=== PATIENT | male | born 1975 | race Caucasian/White ===

== ENCOUNTER 2016-07-09 16:25 | Emergency (ER) | payer MEDICARE, MEDICAID ==
--- NOTE | 2016-07-09 16:49 | Emergency Department Record ---
History of Present Illness - General Chief complaint: Nausea, Vomiting, Diarrhea Stated complaint: NAUSEA AND BACK PAIN Time Seen by Provider: 07/09/16 16:46 Source: Patient Mode of Arrival: Ambulatory Limitations: No limitations - History of Present Illness Initial comments: 41 yo female presents to ED with a CC of congestion, fever, non-productive cough , and sore throat symptoms. Patient reports taking Motrin for his bodyaches and fever symptoms. Patient denies health problems other than "pain all the time". MD complaint: Other (congestion, fever) Onset/Timin -: Week(s) Associated Abdominal Pain: No Radiation: None Quality: Aching Improves with: None Worsens with: None Associated Symptoms: Denies other symptoms - Related Data Home Medications Medication Instructions Recorded Confirmed Last Taken Thyroid,Pork [[place] Thyroid] 15 mg PO QHS 08/09/14 07/09/16 07/09/16 Pantoprazole Sodium [Protonix] 40 mg PO QHS 09/12/14 07/09/16 07/09/16 Meloxicam [Mobic] 15 mg PO QHS 10/02/15 07/09/16 07/08/16 Cyclobenzaprine HCl [Flexeril] 10 mg PO QHS 07/09/16 07/09/16 07/08/16 Ibuprofen [Motrin 600Mg] 600 mg PO Q6H 07/09/16 07/09/16 07/09/16 Linaclotide [Linzess] 145 mcg PO DAILY 07/09/16 07/09/16 07/09/16 Oxymorphone HCl [Oxymorphone HCl 1 tab PO BID 07/09/16 07/09/16 07/08/16 ER] Previous Rx's Medication Instructions Recorded Doxycycline Hyclate [Doxycycline] 100 mg PO BID #20 cap 07/09/16 Allergies Allergy/AdvReac Type Severity Reaction Status Date / Time cefaclor [From Ceclor] Allergy HYPERSENSIT Verified 07/09/16 16:33 [facility] Travel Screening - Travel/Exposure Within Last 30 Days Have you traveled within the last 30 days?: No - Travel/Exposure Within Last Year Have you traveled outside the [place] in the last year?: No - Additonal Travel Details Have you been exposed to anyone with a communicable illness?: No - Travel Symptoms Symptom Screening: None Review of Systems Constitutional: Reports: Chills, Fever, Malaise. Denies: Night sweats Eyes: Denies: Eye discharge, Eye pain ENT: Reports: Congestion. Denies: Ear pain, Epistaxis, Throat pain Respiratory: Reports: Cough. Denies: Dyspnea, Hemoptysis Cardiovascular: Denies: Chest pain, Dyspnea on exertion Endocrine: Denies: Fatigue, Heat or cold intolerance Gastrointestinal: Denies: Abdominal pain, Nausea, Vomiting Musculoskeletal: Denies: Arthralgia, Back pain, Gout, Joint swelling Skin: Denies: Bruising, Change in color Neurological: Denies: Abnormal gait, Confusion, Seizure Psychiatric: Denies: Anxiety Hematological/Lymphatic: Denies: Anemia, Blood Clots Past Medical History - SOCIAL HISTORY Smoking Status: Former smoker Alcohol Use: Occassional Drug Use Detail:: Marijuana - RESPIRATORY Hx Respiratory Disorders: No - CARDIOVASCULAR Hx Cardio Disorders: No - NEURO Hx Neuro Disorders: Yes Hx Headaches: Yes - GI Hx GI Disorders: Yes Hx Reflux: Yes - Hx Genitourinary Disorders: No - ENDOCRINE Hx Endocrine Disorders: Yes Hx Thyroid Disease: Yes (hyper) - MUSCULOSKELETAL Hx Musculoskeletal Disorders: Yes Hx Arthritis: Yes Hx Back Injury: Yes - PSYCH Hx Psych Problems: No - HEMATOLOGY/ONCOLOGY Hx Hematology/Oncology Disorders: No Family Medical History Any Significant Family History?: Yes Family Hx Comment (NOT TO BE USED IN PLACE OF ITEMS BELOW): Denies Hx Dementia: Grandparents Hx Depression: Children Hx Diabetes: Mother, Grandparents Physical Exam - General General Appearance: Alert, Oriented x3, Cooperative, No acute distress Limitations: No limitations - Head Head exam: Atraumatic, Normocephalic, Normal inspection Head exam detail: negative: Abrasion, Contusion, Sanders's sign, General tenderness, Hematoma, Laceration - Eye Eye exam: Normal appearance. negative: Conjunctival injection, Periorbital swelling, Periorbital tenderness, Scleral icterus - ENT Ear exam: negative: Auricular hematoma, Auricular trauma Nasal Exam: negative: Active bleeding, Discharge, Dried blood, Foreign body Mouth exam: negative: Drooling, Laceration, Muffled voice, Tongue elevation Throat exam: negative: Tonsillar erythema, Tonsillomegaly, R peritonsillar mass , L peritonsillar mass - Neck Neck exam: Normal inspection. negative: Meningismus, Tenderness - Respiratory Respiratory exam: Normal lung sounds bilaterally. negative: Rales, Respiratory distress, Rhonchi, Stridor - Cardiovascular Cardiovascular Exam: Regular rate, Normal rhythm, Normal heart sounds - GI/Abdominal GI/Abdominal exam: Soft. negative: Rebound, Rigid, Tenderness - Rectal Rectal exam: Deferred - exam: Deferred - Extremities Extremities exam: Normal inspection. negative: Calf tenderness, Pedal edema, Tenderness - Back Back exam: Denies: CVA tenderness (R), CVA tenderness (L) - Neurological Neurological exam: Alert, Normal gait, Oriented X3 - Psychiatric Psychiatric exam: Normal affect, Normal mood - Skin Skin exam: Normal color. negative: Abrasion Type of lesion: negative: abrasion Course Vital Signs 07/09/16 16:39 Temperature 98.7 F Pulse Rate 92 H Respiratory 20 Rate Blood Pressure 152/97 Pulse Ox 96 - Reevaluation(s) Reevaluation #1: 07/09/16 17:07 Influenza negative. Will prescribe Doxycycline for a 10-day course of antibiotics. Patient appears stable for discharge at this time. Disposition Disposition: Discharge Clinical Impression: Upper respiratory tract infection Qualifiers: URI type: unspecified URI Qualified Code(s): J06.9 - Acute upper respiratory infection, unspecified Disposition: Home, Self-Care Condition: (2) Stable Instructions: Upper Respiratory Infection (ED) Additional Instructions: Return to ED if your symptoms worsen or if you have any concerns. Follow-up with your family doctor in 3-5 days as directed. Doxycycline as directed. Prescriptions: Doxycycline Hyclate [Doxycycline] 100 mg PO BID #20 cap Forms: Patient Portal Access Time of Disposition: 17:10
[2016-07-09 17:05] LABS: INFLUENZA A NEGATIVE (NEGATIVE); INFLUENZA B NEGATIVE (NEGATIVE)
== END 2016-07-09 17:18 | disposition home or self-care (01) ==
LOC: ER 16:25
DX: J06.9 Acute upper respiratory infection, unspecified (principal); R11.2 Nausea with vomiting, unspecified; R19.7 Diarrhea, unspecified; R05 Cough; J02.9 Acute pharyngitis, unspecified
CPT/HCPCS: 87400; 99282

== ENCOUNTER 2016-07-11 12:04 | Emergency (ER) | payer MEDICARE, MEDICAID ==
[2016-07-11] MEDS: ONDANSETRON 4 MG ODT TABLET SL ONE (12:33)
--- NOTE | 2016-07-11 12:34 | Emergency Department Record ---
History of Present Illness - General Chief Complaint: Difficulty Breathing Stated Complaint: URI Time Seen by Provider: 07/11/16 12:28 Source: Patient Mode of Arrival: Ambulatory Limitations: No limitations - History of Present Illness Initial Comments: 41 yo returns to ED for evaluation of continued fevers, chills, nausea, and vomiting symptoms. Patient was seen 2 days ago, influenza was negative at that time, and the patient was started on Doxycycline for his symptoms. Patient reports that his symptoms have not improved, however he was unable to fill his prescription for nausea and vomiting, and has not been able to keep his ibuprofen down to help his symptoms. Onset/Timin -: Days(s) Severity: Moderate Severity scale (1-10): 6 Quality: Aching Consistency: Constant Improves With: Nothing Worsens With: Nothing Context: Recent URI Associated Symptoms: Fever Treatments Prior to Arrival: Other (antibiotics) - Related Data Home Oxygen Therapy: No Home Medications Medication Instructions Recorded Confirmed Last Taken Thyroid,Pork [[place] Thyroid] 15 mg PO QHS 08/09/14 07/11/16 1 Day Ago Pantoprazole Sodium [Protonix] 40 mg PO QHS 09/12/14 07/11/16 1 Day Ago Cyclobenzaprine HCl [Flexeril] 10 mg PO QHS 07/09/16 07/11/16 1 Day Ago Ibuprofen [Motrin 600Mg] 600 mg PO Q6H 07/09/16 07/11/16 1 Day Ago Linaclotide [Linzess] 145 mcg PO DAILY 07/09/16 07/11/16 1 Day Ago Oxymorphone HCl [Oxymorphone HCl 1 tab PO BID 07/09/16 07/11/16 1 Day Ago ER] Previous Rx's Medication Instructions Recorded Doxycycline Hyclate [Doxycycline] 100 mg PO BID #20 cap 07/09/16 Ondansetron [Zofran Odt] 4 mg PO Q6H PRN #20 tab.rapdis 07/11/16 Allergies Allergy/AdvReac Type Severity Reaction Status Date / Time cefaclor [From Ceclor] Allergy HYPERSENSIT Verified 07/11/16 12:14 [facility] Travel Screening - Travel/Exposure Within Last 30 Days Have you traveled within the last 30 days?: No - Travel/Exposure Within Last Year Have you traveled outside the [place] in the last year?: No - Additonal Travel Details Have you been exposed to anyone with a communicable illness?: No - Travel Symptoms Symptom Screening: None Review of Systems Constitutional: Reports: Chills, Fever, Malaise. Denies: Night sweats Eyes: Denies: Eye discharge, Eye pain ENT: Denies: Congestion, Ear pain, Epistaxis Respiratory: Reports: Cough. Denies: Dyspnea Cardiovascular: Denies: Chest pain, Dyspnea on exertion, Palpitations Endocrine: Reports: Fatigue. Denies: Heat or cold intolerance Gastrointestinal: Reports: Nausea, Vomiting. Denies: Abdominal pain Genitourinary: Denies: Hematuria, Incontinence, Retention Musculoskeletal: Reports: Myalgia. Denies: Arthralgia, Back pain, Gout, Joint swelling Skin: Denies: Bruising, Change in color, Change in hair/nails Neurological: Denies: Abnormal gait, Confusion, Headache, Seizure Psychiatric: Denies: Anxiety Hematological/Lymphatic: Denies: Anemia, Blood Clots Past Medical History - SOCIAL HISTORY Smoking Status: Former smoker Alcohol Use: Occassional Drug Use: None - RESPIRATORY Hx Respiratory Disorders: No - CARDIOVASCULAR Hx Cardio Disorders: No - NEURO Hx Neuro Disorders: Yes Hx Headaches: Yes - GI Hx GI Disorders: Yes Hx Reflux: Yes - Hx Genitourinary Disorders: No - ENDOCRINE Hx Endocrine Disorders: Yes Hx Thyroid Disease: Yes (hyper) - MUSCULOSKELETAL Hx Musculoskeletal Disorders: Yes Hx Arthritis: Yes Hx Back Injury: Yes - PSYCH Hx Psych Problems: No - HEMATOLOGY/ONCOLOGY Hx Hematology/Oncology Disorders: No Family Medical History Any Significant Family History?: Yes Family Hx Comment (NOT TO BE USED IN PLACE OF ITEMS BELOW): Denies Hx Dementia: Grandparents Hx Depression: Children Hx Diabetes: Mother, Grandparents Physical Exam - General General Appearance: Alert, Oriented x3, Cooperative, Mild distress Limitations: No limitations - Head Head exam: Atraumatic, Normocephalic, Normal inspection Head exam detail: negative: Abrasion, Contusion, Sanders's sign, General tenderness, Hematoma, Laceration - Eye Eye exam: Normal appearance. negative: Conjunctival injection, Periorbital swelling, Periorbital tenderness, Scleral icterus - ENT Ear exam: negative: Auricular hematoma, Auricular trauma Nasal Exam: negative: Active bleeding, Discharge, Dried blood, Foreign body Mouth exam: negative: Drooling, Laceration, Muffled voice, Tongue elevation - Neck Neck exam: Normal inspection. negative: Meningismus, Tenderness - Respiratory Respiratory exam: Normal lung sounds bilaterally. negative: Rales, Respiratory distress, Rhonchi, Stridor - Cardiovascular Cardiovascular Exam: Normal rhythm, Normal heart sounds, Tachycardia - GI/Abdominal GI/Abdominal exam: Soft. negative: Rebound, Rigid, Tenderness - Rectal Rectal exam: Deferred - exam: Deferred - Extremities Extremities exam: Normal inspection. negative: Calf tenderness, Pedal edema, Tenderness - Back Back exam: Denies: CVA tenderness (R), CVA tenderness (L) - Neurological Neurological exam: Alert, Normal gait, Oriented X3 - Psychiatric Psychiatric exam: Normal affect, Normal mood - Skin Skin exam: Normal color. negative: Abrasion Type of lesion: negative: abrasion Course Vital Signs 07/11/16 12:06 Temperature 98.5 F Pulse Rate 112 H Respiratory 18 Rate Blood Pressure 140/103 Pulse Ox 95 - Reevaluation(s) Reevaluation #1: 07/11/16 12:32 I counseled the patient regarding his negative influenza and that his symptoms are likely viral in nature (doxycyline may not help with these symptoms). Patient was instructed to fill his prescription for Zofran so that he will be able to tolerate Motrin and Tylenol for his fevers and body aches. Patient verbalizes understanding, and appears stable for discharge at this time. Disposition Disposition: Discharge Clinical Impression: URI (upper respiratory infection) Qualifiers: URI type: unspecified URI Qualified Code(s): J06.9 - Acute upper respiratory infection, unspecified Disposition: Home, Self-Care Condition: (2) Stable Instructions: Viral Syndrome, [employer] (GEN) Additional Instructions: Return to ED if your symptoms worsen or if you have any concerns. Follow-up with your family doctor in 1-3 days without fail. Zofran as directed. Prescriptions: Ondansetron [Zofran Odt] 4 mg PO Q6H PRN #20 tab.rapdis PRN Reason: Nausea/Vomiting Forms: Patient Portal Access Time of Disposition: 12:36
[2016-07-11] MEDS: ACETAMINOPHEN 500 MG TABLET PO ONE (12:37)
== END 2016-07-11 12:42 | disposition home or self-care (01) ==
LOC: ER 12:04
DX: J06.9 Acute upper respiratory infection, unspecified (principal); R06.00 Dyspnea, unspecified; R11.2 Nausea with vomiting, unspecified
CPT/HCPCS: 99282

== ENCOUNTER 2017-05-21 04:52 | Emergency (ER) | payer MEDICARE, MEDICAID ==
[2017-05-21] MEDS ORDERED: ACETAMINOPHEN 500 MG TABLET PO ONE (05:10)
[2017-05-21] MEDS ORDERED: KETOROLAC 60 MG/2 ML VIAL IM STA (05:10)
--- NOTE | 2017-05-21 05:16 | Emergency Department Record ---
History of Present Illness - General Chief Complaint: Back Pain/Injury Stated Complaint: EXTREME BACK, RIGHT LEG PAIN,NAUSEATED Time Seen by Provider: 05/21/17 05:06 Source: Patient Mode of Arrival: Ambulatory Limitations: No limitations - History of Present Illness Initial Comments: 42 yo male presents to ED for evaluation of fever, body aches, and no- productive cough symptoms that began this morning. Patient reports taking ibuprofen prior to arrival as well as "oxycontin" which did not help his pain symptoms. Patient denies ill contacts, and denies health problems other than back surgeries in the past. MD Complaint: Back pain Onset/Timin -: Days(s) Place: Home Severity scale (1-10): 8 Quality: Aching, Stabbing Consistency: Constant Associated Symptoms: Cough, Nausea/vomiting Treatments Prior to Arrival: NSAIDS - Related Data Home Medications Medication Instructions Recorded Confirmed Last Taken Oxycodone HCl [Oxycontin] 20 mg PO BID 05/21/17 05/21/17 05/21/17 Allergies Allergy/AdvReac Type Severity Reaction Status Date / Time cefaclor [From Ceclor] Allergy HYPERSENSIT Verified 07/11/16 12:14 [facility] Travel Screening - Travel/Exposure Within Last 30 Days Have you traveled within the last 30 days?: No - Travel Symptoms Symptom Screening: None Review of Systems Constitutional: Reports: Chills, Fever, Malaise. Denies: Night sweats Eyes: Denies: Eye discharge, Eye pain ENT: Denies: Congestion, Ear pain, Epistaxis Respiratory: Reports: Cough. Denies: Dyspnea Cardiovascular: Denies: Chest pain, Dyspnea on exertion Endocrine: Denies: Fatigue, Heat or cold intolerance Gastrointestinal: Reports: Nausea. Denies: Abdominal pain, Vomiting Genitourinary: Denies: Incontinence, Retention, Testicular pain Musculoskeletal: Reports: Back pain, Myalgia. Denies: Joint swelling Skin: Denies: Bruising, Change in color Neurological: Denies: Abnormal gait, Confusion, Headache, Seizure Psychiatric: Denies: Anxiety Hematological/Lymphatic: Denies: Anemia, Blood Clots Past Medical History - SOCIAL HISTORY Smoking Status: Former smoker - RESPIRATORY Hx Respiratory Disorders: No - CARDIOVASCULAR Hx Cardio Disorders: No - NEURO Hx Neuro Disorders: Yes Hx Headaches: Yes - GI Hx GI Disorders: Yes Hx Reflux: Yes - Hx Genitourinary Disorders: No - ENDOCRINE Hx Endocrine Disorders: Yes Hx Thyroid Disease: Yes (hyper) - MUSCULOSKELETAL Hx Musculoskeletal Disorders: Yes Hx Arthritis: Yes Hx Back Injury: Yes - PSYCH Hx Psych Problems: No - HEMATOLOGY/ONCOLOGY Hx Hematology/Oncology Disorders: No Family Medical History Any Significant Family History?: Yes Hx Dementia: Grandparents Hx Depression: Children Hx Diabetes: Mother, Grandparents Physical Exam - General General Appearance: Alert, Oriented x3, Cooperative, Moderate distress Limitations: No limitations - Head Head exam: Atraumatic, Normocephalic, Normal inspection Head exam detail: negative: Abrasion, Contusion, Sanders's sign, General tenderness, Hematoma, Laceration - Eye Eye exam: Normal appearance. negative: Conjunctival injection, Periorbital swelling, Periorbital tenderness, Scleral icterus - ENT Ear exam: negative: Auricular hematoma, Auricular trauma Nasal Exam: negative: Active bleeding, Discharge, Dried blood, Foreign body Mouth exam: negative: Drooling, Laceration, Muffled voice, Tongue elevation - Neck Neck exam: Normal inspection. negative: Meningismus, Tenderness - Respiratory Respiratory exam: Decreased breath sounds. negative: Rales, Respiratory distress, Rhonchi, Stridor - Cardiovascular Cardiovascular Exam: Regular rate, Normal rhythm, Normal heart sounds - GI/Abdominal GI/Abdominal exam: Soft. negative: Rebound, Rigid, Tenderness - Rectal Rectal exam: Deferred - exam: Deferred - Extremities Extremities exam: Normal inspection. negative: Pedal edema, Tenderness - Back Back exam: Denies: Rash noted - Neurological Neurological exam: Alert, Normal gait, Oriented X3 - Psychiatric Psychiatric exam: Normal affect, Normal mood - Skin Skin exam: Normal color. negative: Abrasion Type of lesion: negative: abrasion Course Vital Signs 05/21/17 05:03 Temperature 100.4 F H Pulse Rate [ 92 H Pulse Ox Probe] Respiratory 20 Rate Blood Pressure 142/95 [Left Arm] Pulse Ox 96 - Reevaluation(s) Reevaluation #1: 05/21/17 05:30 CXR: No acute process Reevaluation #2: 05/21/17 06:13 Labs reviewed, UA and influenza are both negative for source of bacterial infection. Patient was updated on all results and reports that he is feeling much better, is diaphoretic from fever improvement. Patient appears stable for discharge with continued symptomatic care at home as directed. Disposition Disposition: Discharge Clinical Impression: Viral syndrome Disposition: Home, Self-Care Condition: (2) Stable Instructions: Viral Syndrome (ED) Additional Instructions: Return to ED if your symptoms worsen or if you have any concerns. Tylenol and Motrin as needed for fever symptoms. Follow-up with your family doctor in 3-5 days as directed. Forms: Patient Portal Access Time of Disposition: 06:19 Quality - Quality Measures Quality Measures: N/A - Blood Pressure Screening Does Patient Have Any of the Following: No Blood Pressure Classification: Hypertensive Reading Systolic Measurement: 142 Diastolic Measurement: 95 Screening for High Blood Pressure: < Second Hypertensive BP, F/U Documented > [ [id number]] Second Hypertensive Follow-up Interventions: Referral to alternative/primary care provider.
[2017-05-21 05:46] LABS: INFLUENZA A NEGATIVE (NEGATIVE); INFLUENZA B NEGATIVE (NEGATIVE)
[2017-05-21 06:00] LABS: URINE APPEARANCE CLEAR; URINE BILIRUBIN NEGATIVE (NEGATIVE); URINE BLOOD TRACE-I (NEGATIVE); URINE COLOR YELLOW; URINE GLUCOSE (UA) NEGATIVE (NEGATIVE); URINE KETONE TRACE (NEGATIVE); URINE LEUKOCYTE ESTERASE NEGATIVE (NEGATIVE); URINE NITRITE NEGATIVE (NEGATIVE); URINE PROTEIN NEGATIVE (NEGATIVE)
[2017-05-21 06:11] LABS: URINE MUCUS LIGHT; URINE RBC 0 - 2 (NONE SEEN); URINE WBC 0 - 2 (0-2/hpf)
--- NOTE | 2017-05-21 14:46 | RADIOLOGY REPORT ---
EXAM: CHEST, TWO VIEWS HISTORY: COUGH AND CONGESTION FOR SEVERAL DAYS. TECHNIQUE: PA and lateral views of the chest were obtained. Comparison: Two view chest 08/21/13. FINDINGS: The heart size is normal. There are four parallel metallic densities overlying the posterior aspect of the thoracic spinal canal consistent with a pain stimulator device, new since the prior study. No acute infiltrate is seen and no pleural effusion or pneumothorax evident. Some spurring in the thoracic spine again seen, particularly inferiorly. IMPRESSION: 1. NO ACUTE INFILTRATE EVIDENT. 2. PAIN STIMULATOR DEVICE IN PLACE WITHIN THE MID THORACIC SPINE. 3. PROMINENT SPURRING IN THE LOWER THORACIC SPINE. JOB NUMBER: [id number] MTDD
== END 2017-05-21 06:28 | disposition home or self-care (01) ==
LOC: ER 04:52
DX: B34.9 Viral infection, unspecified (principal); M54.6 Pain in thoracic spine; R11.0 Nausea; R05 Cough; M79.651 Pain in right thigh
CPT/HCPCS: 71020; 81001; 87400; 96372; 99283; 99284; J1885

== ENCOUNTER 2017-08-31 13:24 | Emergency (ER) | payer MEDICARE, MEDICAID ==
--- NOTE | 2017-08-31 13:39 | Emergency Department Record ---
History of Present Illness - General Chief Complaint: Chest Pain Stated Complaint: CHEST PAIN Time Seen by Provider: 08/31/17 13:31 Source: Patient Mode of Arrival: Ambulatory Limitations: No limitations - History of Present Illness Initial Comments: 42 yo male presents with chest pain. The pain has been on and off since yesterday. Onset was about noon yesterday. It was a pressure that lasted nearly the entire day. His pain today has been constant since 10am when he awoke. He feels a little sweaty. No cough. No fever. He denies a history of CAD. His family history is positive with his father with " maker at age 62. He has [place] a [place] in the [place] [facility] He thinks it was about one year ago. He states it was normal. He does not seen a delivery architect. His PCP is [facility] in [place]. He states he called today and was instructed to go to the ED. His has been ill recently and he feels a lot of stress. MD Complaint: Chest pain Onset/Timin -: Days(s) Onset: Other Pain Location: Left chest Pain Radiation: None Quality: Other Consistency: Constant Improves With: Nothing Worsens With: Nothing Anginal Symptoms: Diaphoresis Treatments Prior to Arrival: None - Related Data Allergies Allergy/AdvReac Type Severity Reaction Status Date / Time cefaclor [From [facility]] Allergy HYPERSENSIT Verified 08/31/17 13:32 IVITY Travel Screening - Travel/Exposure Within Last 30 Days Have you traveled within the last 30 days?: No Review of Systems Constitutional: Denies: Chills, Fever, Malaise, Weakness Eyes: Denies: Eye discharge ENT: Denies: Congestion, Ear pain, Epistaxis, Throat pain Respiratory: Reports: Dyspnea. Denies: Cough, Hemoptysis, Stridor, Wheezes Cardiovascular: Reports: Chest pain. Denies: Dyspnea on exertion, Edema, Palpitations, Syncope Endocrine: Denies: Fatigue, Polydipsia, Polyuria Gastrointestinal: Denies: Abdominal pain, Diarrhea, Nausea, Vomiting Genitourinary: Denies: Dysuria, Frequency, Hematuria Musculoskeletal: Reports: Back pain (chronic). Denies: Arthralgia, Joint swelling, Myalgia Skin: Denies: Bruising, Change in color, Rash Neurological: Denies: Headache, Numbness, Weakness Psychiatric: Denies: Anxiety Hematological/Lymphatic: Denies: Blood Clots, Easy bleeding, Easy bruising, Swollen glands Past Medical History - SOCIAL HISTORY Smoking Status: Former smoker - RESPIRATORY Hx Respiratory Disorders: No - CARDIOVASCULAR Hx Cardio Disorders: No - NEURO Hx Neuro Disorders: Yes Hx Headaches: Yes - GI Hx GI Disorders: Yes Hx Reflux: Yes - Hx Genitourinary Disorders: No - ENDOCRINE Hx Endocrine Disorders: Yes Hx Thyroid Disease: Yes (hyper) - MUSCULOSKELETAL Hx Musculoskeletal Disorders: Yes Hx Arthritis: Yes Hx Back Injury: Yes - PSYCH Hx Psych Problems: No - HEMATOLOGY/ONCOLOGY Hx Hematology/Oncology Disorders: No Family Medical History Hx Dementia: Grandparents Hx Depression: Children Hx Diabetes: Mother, Grandparents Physical Exam - General General Appearance: Alert, Oriented x3, Cooperative, No acute distress Limitations: No limitations - Head Head exam: Atraumatic, Normocephalic, Normal inspection - Eye Eye exam: Normal appearance, PERRL. negative: Conjunctival injection, Scleral icterus - ENT ENT exam: Normal exam, Mucous membranes moist, Normal orophraynx Ear exam: Normal external inspection Nasal Exam: Normal inspection Mouth exam: Normal external inspection Teeth exam: Normal inspection Throat exam: Normal inspection. negative: Tonsillar erythema, Tonsillar exudate - Neck Neck exam: Normal inspection, Full ROM. negative: Tenderness - Respiratory Respiratory exam: Normal lung sounds bilaterally, Chest wall tenderness ( inconsistently tender). negative: Decreased breath sounds, Respiratory distress , Rhonchi, Stridor, Wheezes - Cardiovascular Cardiovascular Exam: Regular rate, Normal rhythm, Normal heart sounds Peripheral Pulses: 2+: Radial (R), Radial (L) - GI/Abdominal GI/Abdominal exam: Soft. negative: Tenderness - Rectal Rectal exam: Deferred - exam: Deferred - Extremities Extremities exam: Normal inspection, Full ROM, Normal capillary refill. negative: Calf tenderness, Pedal edema, Tenderness - Back Back exam: Reports: Normal inspection, Full ROM. Denies: Muscle spasm, Rash noted, Tenderness - Neurological Neurological exam: Alert, Normal gait, Oriented X3, Reflexes normal - Psychiatric Psychiatric exam: Normal affect, Normal mood - Skin Skin exam: Dry, Intact, Normal color, Warm Course Vital Signs 08/31/17 13:27 Temperature 97.6 F Pulse Rate 89 Respiratory 18 Rate Blood Pressure 136/98 Pulse Ox 97 - Reevaluation(s) Reevaluation #1: EKG NSR rate is 83, intervals normal, axis normal, ST no acute changes. No old EKG. 1331. Normal EKG. 08/31/17 13:32 MSU will be called for review of prior stress test. 08/31/17 14:08 No acute changes on the CBC or CMP The CXR was reviewed. No acute preliminary changes. Awaiting Troponin. 08/31/17 14:12 The Troponin is negative at <0.010 I discussed the case with Dr Mcrae of cardiology in the specialty clinic today The patient does not have the option of an exercise treadmill due to lumbar disc disease He recommends transfer to [facility] for stress test MSU and the PCP do not have prior stress test results. 08/31/17 14:42 The patient was informed of the results. I also informed him that Dr Mcrae and I recommend a stress test with admission. The patient states there are no conditions that he would agree to being admitted or staying in the hospital whether it is at [facility] or [facility]. He has children and a spouse dealing with medical issues. I explained that a cardiac cause is not ruled out at this time. I explained that going home without the testing is a risk. The risk includes but is not limited to heart attack, , injury. He understands my concerns. I answered any questions. He is still not willing to stay. I explained the AMA process and that he will need to sign out. I explained I will still try to arrange follow up testing. 08/31/17 15:29 The patient did agree to a second set of cardiac enzymes but he requests DC as soon as possible. Repeat Troponin is negative Medical Decision Making - Lab Data Result diagrams: 08/31/17 13:30 08/31/17 13:30 Disposition Disposition: Discharge Clinical Impression: Left against medical advice, Chest pain Disposition: Against Medical Advice Condition: (1) Good Instructions: Chest Pain (ED), Against Medical Advice (ED) Additional Instructions: Call your doctor for very close follow up You have been referred to the cardiology clinic. Call first thing tomorrow to schedule your appointment You may return or be seen any time to complete your testing Return immediately if the pain return or persists. You are signing out AMA at this time Referrals: DARIELA MCRAE M.D. [MEDICAL DOCTOR] - [facility] Specialty [facility] [Provider Group] Forms: Patient Portal Access Time of Disposition: 15:29 Quality - Quality Measures Quality Measures: N/A - Blood Pressure Screening Does Patient Have Any of the Following: No Blood Pressure Classification: Hypertensive Reading Systolic Measurement: 136 Diastolic Measurement: 98 Screening for High Blood Pressure: < Pre-Hypertensive BP, F/U Documented > [ G8950] Pre-Hypertensive Follow-up Interventions: Referral to alternative/primary care provider.
[2017-08-31 13:51] LABS: BASO % 0.4 % (0-6); EOS % 3.1 % (0-6); GRAN % 61.1 % (47-80); HEMATOCRIT 43.6 % (42.0-52.0); LYMPH % 27.9 % (16-45); MEAN CELL VOLUME 82.3 fl (81-97); MEAN CORPUSCULAR HEMOGLOBIN 28.3 pg (27-33); MEAN CORPUSCULAR HGB CONC 34.4 g/dl (32-36); MEAN PLATELET VOLUME 9.8 fl (7.4-10.4); MONO % 7.5 % (0-9); PLATELET COUNT 265 K/uL (130-400); RED CELL DISTRIBUTION WIDTH 13.1 % (11.5-14.5); WHITE BLOOD COUNT W/O DIFF 6.8 K/uL (4.2-12.2)
[2017-08-31 14:01] LABS: BLOOD UREA NITROGEN 10 mg/dL (6-20); CREATININE 0.9 mg/dL (0.7-1.2); EST GLOMERULAR FILTRATION RATE > 60 mL/min
[2017-08-31 14:02] LABS: TOTAL PROTEIN 7.4 g/dL (6.6-8.7)
[2017-08-31 14:04] LABS: GLUCOSE,RANDOM 115 mg/dL (74-109); PARTIAL THROMBOPLASTIN TIME 27.3 SECONDS (24.5-39.1); PROTHROMBIN TIME (PATIENT) 10.5 SECONDS (9.5-12.1)
[2017-08-31 14:06] LABS: ALB/GLOB RATIO 1.5 (1.1-1.8); ALBUMIN 4.4 g/dL (4.0-5.0); ALKALINE PHOSPHATASE 75 U/L (40-129); ALT/SGPT 38 U/L (<41); AST/SGOT 34 U/L (10.0-50.0)
[2017-08-31] MEDS ORDERED: ASPIRIN 81 MG CHEWABLE TABLET PO ONE (14:16)
--- NOTE | 2017-09-01 13:23 | RADIOLOGY REPORT ---
EXAM: CHEST, TWO VIEWS HISTORY: LEFT SIDED CHEST PAIN FOR THE LAST COUPLE OF DAYS. TECHNIQUE: PA and lateral views of the chest were obtained. Comparison: Two view chest 08/09/17. FINDINGS: The heart size is within normal limits. No acute infiltrate identified. No pleural effusion or pneumothorax seen. Spinal stimulator device remains in place similar to before. Less relative elevation of the right hemidiaphragm today. IMPRESSION: PAIN STIMULATOR DEVICE IN PLACE. NO ACUTE INFILTRATE EVIDENT. JOB NUMBER: [id number] [facility]
== END 2017-08-31 16:06 | disposition left against medical advice (07) ==
LOC: ER 13:24
DX: R07.89 Other chest pain (principal); R61 Generalized hyperhidrosis; Z87.891 Personal history of nicotine dependence
CPT/HCPCS: 71046; 80053; 84484; 85025; 85610; 85730; 93005; 93010; 99284

== ENCOUNTER 2017-12-14 08:39 | Emergency (ER) | payer MEDICARE, MEDICAID ==
[2017-12-14] MEDS: HYDROMORPHONE HCL 2 MG/ML VIAL IM ONE (09:18)
[2017-12-14] MEDS: PROMETHAZINE HCL 25 MG/ML VIAL IM ONE (09:20)
[2017-12-14] MEDS: ORPHENADRINE CITRATE 60MG/2ML VIAL IM ONE (09:21)
[2017-12-14] MEDS: KETOROLAC 30 MG/ML VIAL IM ONE (09:23)
--- NOTE | 2017-12-14 09:36 | Emergency Department Record ---
History of Present Illness - General Chief Complaint: Back Pain/Injury Stated Complaint: BACK PAIN Time Seen by Provider: 12/14/17 09:02 Source: Patient Mode of Arrival: Ambulatory Limitations: No limitations - History of Present Illness Initial Comments: pt is having severe lower back pain that radiates down his r leg. it started suddenly in the night and woke him up. he is having no problems w bowel or bladder. he has chronic back problems and has had surgery and has a stimulator. he does not recall any activity that would have flared it up. MD Complaint: Back pain Onset/Timin -: Hour(s) Similar Symptoms Previously: Yes Radiation: Right leg Severity: Severe Severity scale (1-10): >10 Consistency: Constant Improves With: None Worsens With: Movement, Walking Context: Unknown Associated Symptoms: Denies other symptoms Treatments Prior to Arrival: Prescription analgesics - Related Data Home Medications Medication Instructions Recorded Confirmed Last Taken Tizanidine HCl [Zanaflex] 4 mg PO QHS 12/14/17 12/14/17 12/13/17 Venlafaxine HCl [Effexor Xr] 37.5 mg PO DAILY 12/14/17 12/14/17 12/13/17 Allergies Allergy/AdvReac Type Severity Reaction Status Date / Time cefaclor [From Ceclor] Allergy HYPERSENSIT Verified 12/14/17 08:51 IVITY doxycycline Allergy HYPERSENSIT Verified 12/14/17 08:55 IVITY levothyroxine Allergy HYPERSENSIT Verified 12/14/17 08:55 IVITY Travel Screening - Travel/Exposure Within Last 30 Days Have you traveled within the last 30 days?: No - Travel/Exposure Within Last Year Have you traveled outside the [place] in the last year?: No - Additonal Travel Details Have you been exposed to anyone with a communicable illness?: No - Travel Symptoms Symptom Screening: None Review of Systems Reviewed: No additional complaints except as noted below Constitutional: Reports: As per HPI. Denies: Chills, Fever, Malaise, Night sweats, Weakness, Weight change Eyes: Reports: As per HPI. Denies: Eye discharge, Eye pain, Photophobia, Vision change ENT: Reports: As per HPI. Denies: Congestion, Dental pain, Ear pain, Epistaxis , Hearing loss, Throat pain Respiratory: Reports: As per HPI. Denies: Cough, Dyspnea, Hemoptysis, Stridor, Wheezes Cardiovascular: Reports: As per HPI. Denies: Arrhythmia, Chest pain, Dyspnea on exertion, Edema, Murmurs, Orthopnea, Palpitations, Paroxysmal nocturnal dyspnea, Rheumatic Fever, Syncope Endocrine: Reports: As per HPI. Denies: Fatigue, Heat or cold intolerance, Polydipsia, Polyuria Gastrointestinal: Reports: As per HPI. Denies: Abdominal pain, Constipation, Diarrhea, Hematemesis, Hematochezia, Melena, Nausea, Vomiting Genitourinary: Reports: As per HPI. Denies: Dysuria, Frequency, Hematuria, Incontinence, Retention, Testicular pain, Testicular mass, Urgency Musculoskeletal: Reports: As per HPI, Back pain. Denies: Arthralgia, Gout, Joint swelling, Myalgia, Neck pain Skin: Reports: As per HPI. Denies: Bruising, Change in color, Change in hair/ nails, Lesions, Pruritus, Rash Neurological: Reports: As per HPI. Denies: Abnormal gait, Confusion, Headache, Numbness, Paresthesias, Seizure, Tingling, Tremors, Vertigo, Weakness Psychiatric: Reports: As per HPI. Denies: Anxiety, Auditory hallucinations, Depression, Homicidal thoughts, Suicidal thoughts, Visual hallucinations Hematological/Lymphatic: Reports: As per HPI. Denies: Anemia, Blood Clots, Easy bleeding, Easy bruising, Swollen glands Past Medical History - SOCIAL HISTORY Smoking Status: Former smoker Alcohol Use: Rare Drug Use: None - RESPIRATORY Hx Respiratory Disorders: No - CARDIOVASCULAR Hx Cardio Disorders: No - NEURO Hx Neuro Disorders: Yes Hx Headaches: Yes - GI Hx GI Disorders: Yes Hx Reflux: Yes - Hx Genitourinary Disorders: No - ENDOCRINE Hx Endocrine Disorders: Yes Hx Thyroid Disease: Yes (hyper) - MUSCULOSKELETAL Hx Musculoskeletal Disorders: Yes Hx Arthritis: Yes Hx Back Injury: Yes - PSYCH Hx Psych Problems: No - HEMATOLOGY/ONCOLOGY Hx Hematology/Oncology Disorders: No Family Medical History Any Significant Family History?: No Family Hx Comment (NOT TO BE USED IN PLACE OF ITEMS BELOW): Denies Hx Dementia: Grandparents Hx Depression: Children Hx Diabetes: Mother, Grandparents Physical Exam - General General Appearance: Alert, Oriented x3, Cooperative, Moderate distress - Head Head exam: Normal inspection - Eye Eye exam: Normal appearance, PERRL, EOMI Pupils: Normal accommodation - ENT ENT exam: Normal exam, Mucous membranes moist, Normal external ear exam, Normal orophraynx Ear exam: Normal external inspection. negative: External canal tenderness Nasal Exam: Normal inspection. negative: Discharge, Sinus tenderness Mouth exam: Normal external inspection, Tongue normal Teeth exam: Normal inspection. negative: Dental caries Throat exam: Normal inspection. negative: Tonsillar erythema, Tonsillar exudate - Neck Neck exam: Normal inspection, Full ROM. negative: Tenderness - Respiratory Respiratory exam: Normal lung sounds bilaterally. negative: Respiratory distress - Cardiovascular Cardiovascular Exam: Regular rate, Normal rhythm, Normal heart sounds - GI/Abdominal GI/Abdominal exam: Soft, Normal bowel sounds. negative: Tenderness - Rectal Rectal exam: Deferred - exam: Deferred - Extremities Extremities exam: Normal inspection, Full ROM, Normal capillary refill. negative: Tenderness - Back Back exam: Reports: Paraspinal tenderness, Tenderness, Vertebral tenderness. Denies: Full ROM, Muscle spasm, Rash noted - Neurological Neurological exam: Alert, Normal gait, Oriented X3, Reflexes normal - Psychiatric Psychiatric exam: Normal affect, Normal mood - Skin Skin exam: Dry, Intact, Normal color, Warm Course Vital Signs 12/14/17 08:40 Temperature 98.1 F Pulse Rate 95 H Respiratory 20 Rate Blood Pressure 140/81 Pulse Ox 97 - Reevaluation(s) Reevaluation #1: 12/14/17 11:08 pt feels much better Disposition Disposition: Discharge Clinical Impression: Sciatica associated with disorder of lumbosacral spine Disposition: Home, Self-Care Condition: (1) Good Instructions: Sciatica (ED) Additional Instructions: follow up with family doctor. return sooner if worse. Forms: Patient Portal Access Quality - Quality Measures Quality Measures: N/A - Blood Pressure Screening Does Patient Have Any of the Following: No Blood Pressure Classification: Pre-Hypertensive BP Reading Systolic Measurement: 140 Diastolic Measurement: 81 Screening for High Blood Pressure: < Pre-Hypertensive BP, F/U Documented > [ G8950] Pre-Hypertensive Follow-up Interventions: Follow-up with rescreen every year.
--- NOTE | 2017-12-16 08:01 | RADIOLOGY REPORT ---
EXAM: LUMBAR SPINE , AP AND LATERAL VIEWS HISTORY: SEVERE BACK PAIN. MULTIPLE SURGERIES IN THE LAST FOUR YEARS. TECHNIQUE: AP and lateral views of the lumbar spine were obtained. Comparison: Two views of the lumbar spine dated 03/09/13. FINDINGS: New since the prior radiographic examination of the lumbar spine is an intraspinal stimulator likely entering the spinal canal at the lower thoracic levels. The leads are incompletely imaged. The spinal stimulator generator projects at the level of the high right gluteal region. There has been interval left L5 hemilaminotomy with posterior diskectomy and posterior fusion of L5 and S1. Bilateral pedicle screws with vertically oriented interconnecting rods are noted at the L5-S1 level. The pedicle screws appear within the confines of the vertebral cortices. An interbody spacer is present at the L5-S1 level. Degenerative end plate changes are noted in this region. There is minor levoconvex curvature redemonstrated at the upper lumbar level centered at the L2-L3 level slightly progressed in the interval. The vertebral bodies are otherwise normal in alignment and height. Minor multilevel marginal end plate spurring is present without gross disk space narrowing from the L1-L2 through L4-L5 level. There are likely mild facet degenerative changes at the lower lumbar levels. IMPRESSION: 1. INTERVAL LEFT L5 HEMILAMINOTOMY WITH DISKECTOMY AND POSTERIOR FUSION OF L5 AND S1 WITHOUT EVIDENCE OF COMPLICATION. DEGENERATIVE END PLATE CHANGES AT THIS LEVEL. 2. MILD ANTERIOR MARGINAL END PLATE SPURRING SCATTERED THROUGHOUT THE REMAINING LUMBAR LEVELS SLIGHTLY PROGRESSED IN THE INTERVAL WITHOUT DISK SPACE NARROWING. 3. MILD FACET ARTHROPATHY SUSPECTED AT THE LOWER LUMBAR LEVELS. 4. MINOR LEVOCONVEX CURVATURE CENTERED AT THE L2-L3 LEVEL SLIGHTLY MORE PRONOUNCED IN THE INTERVAL. 5. INTERSPINAL STIMULATOR IN PLACE. J[facility]BER: [id number] [facility]
== END 2017-12-14 11:18 | disposition home or self-care (01) ==
LOC: ER 08:39
DX: M54.40 Lumbago with sciatica, unspecified side (principal); E05.90 Thyrotoxicosis, unspecified without thyrotoxic crisis or storm; Z87.891 Personal history of nicotine dependence
CPT/HCPCS: 99283 ×2; 96372; 72100; J1885; J1170; J2360; J2550

== ENCOUNTER 2018-02-07 18:18 | Emergency (ER) | payer MEDICARE, MEDICAID ==
--- NOTE | 2018-02-07 18:31 | Emergency Department Record ---
History of Present Illness - General Source: Patient Mode of Arrival: Ambulatory Limitations: No limitations - History of Present Illness Initial Comments: 43 yo MD Complaint: Chest pain Onset/Timin -: Days(s) Pain Location: Substernal Pain Radiation: Back Improves With: Nothing Worsens With: Nothing <Stewart Chowdhury - Last Filed: 02/07/18 18:30> - General Source: Patient Mode of Arrival: Ambulatory Limitations: No limitations - History of Present Illness Initial Comments: 43 yo male presents with chest pain this evening after dinner. He has had other similar episodes the last several days. He checked his blood pressure at home prior to arrival. His BP was 128/90. This was higher than his baseline of 120/70. The discomfort is mid chest. No cough or shortness of breath. He has noted some pain in the back. He has had similar pain in 07-04. In September he had a Lexiscan stress test that was normal. No recent illness. He is a non smoker. -: Days(s) Pain Location: Substernal Pain Radiation: Back Severity: Mild Quality: Aching Improves With: Nothing Worsens With: Eating (Tonight after eating) Context: Other Treatments Prior to Arrival: None <VADIM SHAH - Last Filed: 02/07/18 18:47> - General Chief Complaint: Chest Pain Stated Complaint: CHEST PAIN Time Seen by Provider: 02/07/18 18:29 - Related Data Home Medications Medication Instructions Recorded Confirmed Last Taken Docusate Sodium [Stool Softener] 100 mg PO ASDIR 02/07/18 02/07/18 Unknown Allergies Allergy/AdvReac Type Severity Reaction Status Date / Time cefaclor [From Ceclor] Allergy HYPERSENSIT Verified 02/07/18 18:24 IVITY doxycycline Allergy HYPERSENSIT Verified 02/07/18 18:24 IVITY levothyroxine Allergy HYPERSENSIT Verified 02/07/18 18:24 IVITY Travel Screening - Travel/Exposure Within Last 30 Days Have you traveled within the last 30 days?: No <Stewart Chowdhury - Last Filed: 02/07/18 18:30> Review of Systems Constitutional: Denies: Chills, Fever, Malaise, Weakness Eyes: Denies: Eye discharge ENT: Denies: Congestion, Throat pain Respiratory: Denies: Cough, Hemoptysis, Stridor Cardiovascular: Reports: Chest pain. Denies: Arrhythmia, Dyspnea on exertion, Edema, Orthopnea Endocrine: Denies: Fatigue Gastrointestinal: Denies: Abdominal pain, Diarrhea, Nausea, Vomiting Genitourinary: Denies: Dysuria, Frequency, Hematuria Musculoskeletal: Reports: Back pain. Denies: Arthralgia, Joint swelling, Myalgia, Neck pain Skin: Denies: Bruising, Change in color, Rash Neurological: Denies: Confusion Psychiatric: Denies: Anxiety Hematological/Lymphatic: Denies: Blood Clots, Easy bleeding, Easy bruising, Swollen glands <VADIM SHAH - Last Filed: 02/07/18 18:47> Past Medical History - SOCIAL HISTORY Smoking Status: Former smoker Alcohol Use: None Drug Use: None - RESPIRATORY Hx Respiratory Disorders: No - CARDIOVASCULAR Hx Cardio Disorders: No - NEURO Hx Neuro Disorders: Yes Hx Headaches: Yes - GI Hx GI Disorders: Yes Hx Reflux: Yes - Hx Genitourinary Disorders: No - ENDOCRINE Hx Endocrine Disorders: Yes Hx Thyroid Disease: Yes (hyper) - MUSCULOSKELETAL Hx Musculoskeletal Disorders: Yes Hx Arthritis: Yes Hx Back Injury: Yes - PSYCH Hx Psych Problems: No - HEMATOLOGY/ONCOLOGY Hx Hematology/Oncology Disorders: No <Stewart Chowdhury - Last Filed: 02/07/18 18:30> Family Medical History Any Significant Family History?: Yes Hx Dementia: Grandparents Hx Depression: Children Hx Diabetes: Mother, Grandparents Hx Heart Disease: Mother, Brother/Sister, Grandparents <Stewart Chowdhury - Last Filed: 02/07/18 18:30> Physical Exam - General General Appearance: Alert, Oriented x3, Cooperative, No acute distress Limitations: No limitations - Head Head exam: Atraumatic, Normocephalic, Normal inspection - Eye Eye exam: Normal appearance, PERRL. negative: Conjunctival injection, Scleral icterus - ENT ENT exam: Normal exam, Mucous membranes moist Ear exam: Normal external inspection Nasal Exam: Normal inspection Mouth exam: Normal external inspection - Neck Neck exam: Normal inspection - Respiratory Respiratory exam: Normal lung sounds bilaterally. negative: Accessory muscle use, Decreased breath sounds, Prolonged expiratory, Respiratory distress, Rhonchi, Stridor, Wheezes - Cardiovascular Cardiovascular Exam: Regular rate, Normal rhythm, Normal heart sounds Peripheral Pulses: 2+: Radial (R), Radial (L) - GI/Abdominal GI/Abdominal exam: Soft. negative: Distended, Guarding, Rebound - Rectal Rectal exam: Deferred - exam: Deferred - Extremities Extremities exam: Normal inspection, Full ROM, Normal capillary refill. negative: Calf tenderness, Pedal edema, Tenderness - Back Back exam: Denies: CVA tenderness (R), CVA tenderness (L) - Neurological Neurological exam: Alert, Oriented X3 - Psychiatric Psychiatric exam: Normal affect, Normal mood - Skin Skin exam: Dry, Intact, Normal color, Warm <VADIM SHAH - Last Filed: 02/07/18 18:47> Course Vital Signs 02/07/18 18:21 Temperature 97.7 F Pulse Rate 94 H Respiratory 20 Rate Blood Pressure 147/95 Pulse Ox 99 - Reevaluation(s) Reevaluation #1: 02/07/18 18:30 EKG#1 1820 Rate 85 Rhythm Sinus [place] Normal Interval Normal ST Normal No changes since 08/31/17 <Stewart Chowdhury - Last Filed: 02/07/18 18:30> Vital Signs 02/07/18 18:21 Temperature 97.7 F Pulse Rate 94 H Respiratory 20 Rate Blood Pressure 147/95 Pulse Ox 99 - Reevaluation(s) Reevaluation #1: 02/07/18 18:46 02/07/18 18:30 EKG#1 1820 Rate 85 Rhythm Sinus [place] Normal Interval Normal ST Normal No changes since 08/31/17 EMR reviewed September 2017 Normal Lexiscan. <VADIM SHAH - Last Filed: 02/07/18 18:47> Medical Decision Making - Lab Data Result diagrams: 02/07/18 18:39 02/07/18 18:39 <VADIM SHAH - Last Filed: 02/07/18 18:47> Disposition <Stewart Chowdhury - Last Filed: 02/07/18 18:30> <VADIM SHAH - Last Filed: 02/07/18 18:47> Forms: Patient Portal Access Quality - Blood Pressure Screening Does Patient Have Any of the Following: No Blood Pressure Classification: Hypertensive Reading Systolic Measurement: 147 Diastolic Measurement: 95 <Stewart Chowdhury - Last Filed: 02/07/18 18:30> - Blood Pressure Screening Does Patient Have Any of the Following: No Blood Pressure Classification: Hypertensive Reading Systolic Measurement: 147 Diastolic Measurement: 95 <VADIM SHAH - Last Filed: 02/07/18 18:47>
--- NOTE | 2018-02-07 18:58 | Emergency Department Record ---
History of Present Illness - General Chief Complaint: Chest Pain Stated Complaint: CHEST PAIN Time Seen by Provider: 02/07/18 18:29 Source: Patient, Family Mode of Arrival: Ambulatory Limitations: No limitations - History of Present Illness Initial Comments: 43 yo male presents with chest pain. The pain has been on and off for about 3- 4 days. The pain is sternal. The onset was while making dinner. The patient checked his blood pressure and it was noted to be elevated at 128/90. He reports his baseline is 120/70. No recent changes in his health. No cough or shortness of breath. The pain does go to the back that is new. No fevers. He reports chest pain going back to August. He was seen in the ED then by his PCP. He did have an outpatient stress test. He does have pains frequently but relaxes and the pain resolves. He had a Lexiscan that was normal at that time in September. No HTN, DM, Cholesterol. He has a family history. MD Complaint: Chest pain Onset/Timin -: Days(s) Onset: Other (after eating) Pain Location: Substernal Pain Radiation: Back Severity: Mild Quality: Aching Consistency: Intermittent, Now resolved Improves With: Nothing Worsens With: Nothing Context: Other Other Symptoms: Other Treatments Prior to Arrival: None - Related Data Home Medications Medication Instructions Recorded Confirmed Last Taken Docusate Sodium [Stool Softener] 100 mg PO ASDIR 02/07/18 02/07/18 Unknown Allergies Allergy/AdvReac Type Severity Reaction Status Date / Time cefaclor [From [facility]] Allergy HYPERSENSIT Verified 02/07/18 18:24 IVITY doxycycline Allergy HYPERSENSIT Verified 02/07/18 18:24 IVITY levothyroxine Allergy HYPERSENSIT Verified 02/07/18 18:24 IVITY Travel Screening - Travel/Exposure Within Last 30 Days Have you traveled within the last 30 days?: No Review of Systems Constitutional: Denies: Chills, Fever, Malaise, Weakness Eyes: Denies: Eye discharge ENT: Denies: Congestion Respiratory: Denies: Cough, Dyspnea, Hemoptysis, Stridor, Wheezes Cardiovascular: Reports: Chest pain. Denies: Dyspnea on exertion, Edema, Palpitations, Syncope Endocrine: Denies: Fatigue Gastrointestinal: Denies: Abdominal pain, Diarrhea, Nausea, Vomiting Genitourinary: Denies: Dysuria, Frequency Musculoskeletal: Reports: Back pain. Denies: Arthralgia, Joint swelling, Myalgia Skin: Denies: Bruising, Change in color, Rash Neurological: Denies: Confusion, Headache Psychiatric: Denies: Anxiety Past Medical History - SOCIAL HISTORY Smoking Status: Former smoker Alcohol Use: None Drug Use: None - RESPIRATORY Hx Respiratory Disorders: No - CARDIOVASCULAR Hx Cardio Disorders: No - NEURO Hx Neuro Disorders: Yes Hx Headaches: Yes - GI Hx GI Disorders: Yes Hx Reflux: Yes - Hx Genitourinary Disorders: No - ENDOCRINE Hx Endocrine Disorders: Yes Hx Thyroid Disease: Yes (hyper) - MUSCULOSKELETAL Hx Musculoskeletal Disorders: Yes Hx Arthritis: Yes Hx Back Injury: Yes - PSYCH Hx Psych Problems: No - HEMATOLOGY/ONCOLOGY Hx Hematology/Oncology Disorders: No Family Medical History Any Significant Family History?: Yes Hx Dementia: Grandparents Hx Depression: Children Hx Diabetes: Mother, Grandparents Hx Heart Disease: Mother, Brother/Sister, Grandparents Physical Exam - General General Appearance: Alert, Oriented x3, Cooperative, No acute distress Limitations: No limitations - Head Head exam: Atraumatic, Normocephalic, Normal inspection - Eye Eye exam: Normal appearance, PERRL. negative: Conjunctival injection, Scleral icterus - ENT ENT exam: Normal exam, Mucous membranes moist Ear exam: Normal external inspection Nasal Exam: Normal inspection Mouth exam: Normal external inspection - Neck Neck exam: Normal inspection, Full ROM. negative: Tenderness - Respiratory Respiratory exam: Normal lung sounds bilaterally. negative: Respiratory distress - Cardiovascular Cardiovascular Exam: Regular rate, Normal rhythm, Normal heart sounds Peripheral Pulses: 2+: Radial (R), Radial (L) - GI/Abdominal GI/Abdominal exam: Soft. negative: Guarding, Rigid, Tenderness - Rectal Rectal exam: Deferred - exam: Deferred - Extremities Extremities exam: Normal inspection, Full ROM, Normal capillary refill. negative: Tenderness - Back Back exam: Denies: CVA tenderness (R), CVA tenderness (L) - Neurological Neurological exam: Alert, Oriented X3 - Psychiatric Psychiatric exam: Normal affect, Normal mood - Skin Skin exam: Dry, Intact, Normal color, Warm Course Vital Signs 02/07/18 18:21 Temperature 97.7 F Pulse Rate 94 H Respiratory 20 Rate Blood Pressure 147/95 Pulse Ox 99 - Reevaluation(s) Reevaluation #1: 02/07/18 18:30 EKG#1 1820 Rate 85 Rhythm Sinus Starr Normal Interval Normal ST Normal No changes since 08/31/17 02/07/18 18:57 Lexiscan in September 2017 was normal with normal EF 02/07/18 19:30 The labs were reviewed The CBC, CMP,Lipase and Troponin are negative 02/07/18 19:52 The pain has resolved. He was informed of the labs. 02/07/18 19:54 Family informed us the patient has not taken his thyroid medication recently 02/07/18 20:21 TSH 8.7 02/07/18 21:12 CT of the chest was negative for acute process 02/07/18 23:03 The repeat Troponin is negative The chest pain is atypical. Not exertion related. On and off for several months after a normal Lexiscan. I offered transfer given no cardiology at [facility]. The patient declined. He prefers to follow up as an outpatient given his recent negative stress test Referral was made for follow up with cardiology for the atypical chest pain Medical Decision Making - Lab Data Result diagrams: 02/07/18 18:55 02/07/18 18:55 Disposition Disposition: Discharge Clinical Impression: Chest pain Disposition: Home, Self-Care Condition: (1) Good Instructions: Chest Pain (ED) Additional Instructions: You have been referred to the cardiology specialty clinic for follow up Return if the pain returns prior to then Call your family doctor Referrals: NICKI TEJADA M.D. [MEDICAL DOCTOR] - [facility] Specialty Clinics [Provider Group] Forms: Patient Portal Access Time of Disposition: 23:04 Quality - Quality Measures Quality Measures: N/A - Blood Pressure Screening Does Patient Have Any of the Following: No Blood Pressure Classification: Hypertensive Reading Systolic Measurement: 147 Diastolic Measurement: 95 Screening for High Blood Pressure: < Pre-Hypertensive BP, F/U Documented > [ G8950] Pre-Hypertensive Follow-up Interventions: Referral to alternative/primary care provider.
[2018-02-07 18:59] LABS: BASO % 0.3 % (0-6); EOS % 2.2 % (0-6); GRAN % 63.3 % (47-80); LYMPH % 27.5 % (16-45); MEAN CELL VOLUME 82.4 fl (81-97); MEAN CORPUSCULAR HEMOGLOBIN 28.1 pg (27-33); MEAN CORPUSCULAR HGB CONC 34.1 g/dl (32-36); MEAN PLATELET VOLUME 9.7 fl (7.4-10.4); MONO % 6.7 % (0-9); PLATELET COUNT 289 K/uL (130-400); RED BLOOD COUNT 5.34 M/uL (4.40-5.70); RED CELL DISTRIBUTION WIDTH 13.1 % (11.5-14.5); WHITE BLOOD COUNT W/O DIFF 9.1 K/uL (4.2-12.2)
[2018-02-07 19:14] LABS: BLOOD UREA NITROGEN 11 mg/dL (6-20); CREATININE 1.1 mg/dL (0.7-1.2); EST GLOMERULAR FILTRATION RATE > 60 mL/min; PARTIAL THROMBOPLASTIN TIME 27.7 SECONDS (24.5-39.1)
[2018-02-07 19:15] LABS: TOTAL PROTEIN 7.3 g/dL (6.6-8.7)
[2018-02-07 19:17] LABS: GLUCOSE,RANDOM 102 mg/dL (74-109)
[2018-02-07 19:20] LABS: ALB/GLOB RATIO 1.7 (1.1-1.8); ALBUMIN 4.6 g/dL (4.0-5.0); ALKALINE PHOSPHATASE 65 U/L (40-129); ALT/SGPT 27 U/L (<41); AST/SGOT 23 U/L (10.0-50.0); LIPASE 32 U/L (13-60)
--- NOTE | 2018-02-09 13:28 | RADIOLOGY REPORT ---
EXAM: CHEST, TWO VIEWS HISTORY: CHEST PAIN. TECHNIQUE: Frontal and lateral views of the chest were obtained. Comparison: None. FINDINGS: Frontal and lateral views of the chest show slightly decreased lung volumes. The lungs are clear. The cardiomediastinal silhouette is within normal limits. No pleural effusion or pneumothorax. Spinal catheter is seen in the thoracic spine. IMPRESSION: NO ACUTE CARDIOPULMONARY ABNORMALITIES IDENTIFIED. JOB NUMBER: [id number] [facility]
--- NOTE | 2018-02-09 13:39 | CT SCAN REPORT ---
EXAM: CT OF THE THORAX WITH IV CONTRAST HISTORY: CHEST PAIN. TECHNIQUE: Helical CT scan of the thorax was obtained after the administration of intravenous contrast, 80 ml of Omnipaque 300. Comparison: None. FINDINGS: The aorta has normal caliber, no dissection. Three vessel branching pattern with plaque at the origin of the left subclavian artery. The pulmonary arteries show no filling defects proximally. The distal vessels are not well seen due to technique. The lung parenchyma is unremarkable. No mediastinal adenopathy. No pleural effusion or pneumothorax. Limited images of the upper abdomen show no significant abnormality. The bony structures show mild degenerative changes of the spine. IMPRESSION: 1. NO EVIDENCE OF AORTIC ANEURYSM OR DISSECTION. THERE ARE MILD ATHEROSCLEROTIC CHANGES PRESENT. 2. NO EVIDENCE OF PROXIMAL PULMONARY EMBOLISM. JOB NUMBER: [id number] [facility]
== END 2018-02-07 23:21 | disposition home or self-care (01) ==
LOC: ER 18:18
DX: R07.2 Precordial pain (principal); E05.90 Thyrotoxicosis, unspecified without thyrotoxic crisis or storm; Z87.891 Personal history of nicotine dependence
CPT/HCPCS: 71046; 71260; 80053; 83690; 84443; 84484; 85025; 85610; 85730; 93005; 93010; 99284

== ENCOUNTER 2018-03-11 23:16 | Emergency (ER) | payer MEDICARE, MEDICAID ==
--- NOTE | 2018-03-11 23:30 | Emergency Department Record ---
History of Present Illness - General Chief complaint: Lower Extremity Pain Stated complaint: SWOLLEN LEG Time Seen by Provider: 03/11/18 23:27 Source: Patient Mode of Arrival: Ambulatory Limitations: No limitations - History of Present Illness Initial comments: 43 yo male presents to ED for evaluation of "swelling to the left leg" following an injury while out hunting two days ago. Patient reports increased swelling and pain symptoms that have not improved while taking ibuprofen at home. Patient reports abrasion to the left lower leg resulting in injury, there is not surrounding erythema present on examination. MD Complaint: Extremity swelling Onset/Timin -: Days(s) Location: Left, Lower Leg History of Same: No Quality: Aching Consistency: Constant Improves with: Nothing Worsens with: Palpation Associated Symptoms: Denies other symptoms - Related Data Allergies Allergy/AdvReac Type Severity Reaction Status Date / Time cefaclor [From Ceclor] Allergy HYPERSENSIT Verified 02/07/18 18:24 IVITY doxycycline Allergy HYPERSENSIT Verified 02/07/18 18:24 IVITY levothyroxine Allergy HYPERSENSIT Verified 02/07/18 18:24 IVITY Review of Systems Constitutional: Denies: Chills, Fever, Malaise, Night sweats Eyes: Denies: Eye discharge, Eye pain ENT: Denies: Congestion, Ear pain, Epistaxis Respiratory: Denies: Cough, Dyspnea Cardiovascular: Denies: Chest pain, Dyspnea on exertion Endocrine: Denies: Fatigue, Heat or cold intolerance Gastrointestinal: Denies: Abdominal pain, Nausea, Vomiting Genitourinary: Denies: Incontinence, Retention Musculoskeletal: Reports: Arthralgia, Myalgia. Denies: Back pain, Gout, Joint swelling Skin: Denies: Bruising, Change in color Neurological: Denies: Abnormal gait, Confusion, Headache, Seizure Psychiatric: Denies: Anxiety Hematological/Lymphatic: Denies: Anemia, Blood Clots Past Medical History - SOCIAL HISTORY Smoking Status: Former smoker Drug Use: None - RESPIRATORY Hx Respiratory Disorders: No - CARDIOVASCULAR Hx Cardio Disorders: No - NEURO Hx Neuro Disorders: Yes Hx Headaches: Yes - GI Hx GI Disorders: Yes Hx Reflux: Yes - Hx Genitourinary Disorders: No - ENDOCRINE Hx Endocrine Disorders: Yes Hx Thyroid Disease: Yes (hyper) - MUSCULOSKELETAL Hx Musculoskeletal Disorders: Yes Hx Arthritis: Yes Hx Back Injury: Yes - PSYCH Hx Psych Problems: No - HEMATOLOGY/ONCOLOGY Hx Hematology/Oncology Disorders: No Family Medical History Hx Dementia: Grandparents Hx Depression: Children Hx Diabetes: Mother, Grandparents Hx Heart Disease: Mother, Brother/Sister, Grandparents Physical Exam - General General Appearance: Alert, Oriented x3, Cooperative, Mild distress Limitations: No limitations - Head Head exam: Atraumatic, Normocephalic, Normal inspection Head exam detail: negative: Abrasion, Contusion, Sanders's sign, General tenderness, Hematoma, Laceration - Eye Eye exam: Normal appearance. negative: Conjunctival injection, Periorbital swelling, Periorbital tenderness, Scleral icterus - ENT Ear exam: negative: Auricular hematoma, Auricular trauma Nasal Exam: negative: Active bleeding, Discharge, Dried blood, Foreign body Mouth exam: negative: Drooling, Laceration, Muffled voice, Tongue elevation - Neck Neck exam: Normal inspection. negative: Meningismus, Tenderness - Respiratory Respiratory exam: Normal lung sounds bilaterally. negative: Rales, Respiratory distress, Rhonchi, Stridor - Cardiovascular Cardiovascular Exam: Regular rate, Normal rhythm, Normal heart sounds - GI/Abdominal GI/Abdominal exam: Soft. negative: Rebound, Rigid, Tenderness - Rectal Rectal exam: Deferred - exam: Deferred - Extremities Extremities exam: Calf tenderness, Tenderness, Other (Abrasion to the lower extremity present, no surrounding erythema present, strong DPP present. Compartments are soft on examination.). negative: Pedal edema - Back Back exam: Denies: CVA tenderness (R), CVA tenderness (L) - Neurological Neurological exam: Alert, Normal gait, Oriented X3 - Psychiatric Psychiatric exam: Normal affect, Normal mood - Skin Skin exam: Abrasion, Normal color Type of lesion: abrasion Course Vital Signs 03/11/18 23:23 Temperature 97.8 F Pulse Rate [ 83 Pulse Ox Probe] Respiratory 20 Rate Blood Pressure 136/86 [Left Arm] Pulse Ox 97 - Reevaluation(s) Reevaluation #1: 03/12/18 00:16 Laboratory studies were reviewed (D-Dimer) and are grossly unremarkable for an acute process. Reevaluation #2: 03/12/18 00:51 Left lower extremity: No acute fracture identified Patient was updated on all results, symptoms appear c/w contusion and subsequent inflammation of the lower extremity. Patient appears stable for discharge at this time with continued symptomatic care. Medical Decision Making - Lab Data Result diagrams: 03/11/18 23:37 Disposition Disposition: Discharge Clinical Impression: Contusion, lower leg Qualifiers: Encounter type: initial encounter Laterality: left Qualified Code(s): S80.12XA - Contusion of left lower leg, initial encounter Disposition: Home, Self-Care Condition: (2) Stable Instructions: Contusion in Adults (ED) Additional Instructions: Return to ED if your symptoms worsen or if you have any concerns. Elevate, Ibuprofen as directed. Follow-up with your family doctor in 3-5 days as directed. Forms: Patient Portal Access Time of Disposition: 00:52 Quality - Quality Measures Quality Measures: N/A - Blood Pressure Screening Does Patient Have Any of the Following: No Blood Pressure Classification: Pre-Hypertensive BP Reading Systolic Measurement: 136 Diastolic Measurement: 86 Screening for High Blood Pressure: < Pre-Hypertensive BP, F/U Documented > [ G8950] Pre-Hypertensive Follow-up Interventions: Referral to alternative/primary care provider.
[2018-03-11 23:44] LABS: BASO % 0.4 % (0-6); EOS % 2.2 % (0-6); GRAN % 61.8 % (47-80); HEMATOCRIT 39.6 % (42.0-52.0); HEMOGLOBIN 13.2 gm/dl (14.0-18.0); LYMPH % 28.3 % (16-45); MEAN CORPUSCULAR HEMOGLOBIN 27.6 pg (27-33); MEAN CORPUSCULAR HGB CONC 33.3 g/dl (32-36); MEAN PLATELET VOLUME 9.5 fl (7.4-10.4); MONO % 7.3 % (0-9); PLATELET COUNT 282 K/uL (130-400); RED BLOOD COUNT 4.77 M/uL (4.40-5.70); WHITE BLOOD COUNT W/O DIFF 11.2 K/uL (4.2-12.2)
--- NOTE | 2018-03-14 08:33 | RADIOLOGY REPORT ---
EXAM: LEFT LOWER LEG HISTORY: INJURY TO LEG THREE DAYS AGO. TECHNIQUE: Frontal and lateral of the left lower leg were obtained. Comparison: None. FINDINGS: No acute fracture is seen. No radiopaque foreign bodies are identified. Limited assessment of the adjacent knee and ankle without definite focal abnormality. IMPRESSION: NO ACUTE OSSEOUS FINDINGS. JOB NUMBER: [id number] [facility]TDD
== END 2018-03-12 01:03 | disposition home or self-care (01) ==
LOC: ER 23:16
DX: S80.12XA Contusion of left lower leg, initial encounter (principal); S80.812A Abrasion, left lower leg, initial encounter; W22.8XXA Striking against or struck by other objects, initial encounter; Y92.828 Other wilderness area as the place of occurrence of the external cause
CPT/HCPCS: 85025; 85379; 99283; 99284

== ENCOUNTER 2018-07-24 21:11 | Emergency (ER) | payer MEDICARE, MEDICAID ==
[2018-07-25] MEDS: KETOROLAC 30 MG/ML VIAL IM ONE (00:24)
--- NOTE | 2018-07-25 01:06 | Emergency Department Record ---
History of Present Illness - General Chief Complaint: Neck Injury/Pain Stated Complaint: NECK PAIN/HEADACHE Time Seen by Provider: 07/24/18 22:47 Source: Patient Mode of Arrival: Ambulatory Limitations: No limitations - History of Present Illness Initial Comments: pt has head and neck pain that is not getting better despite being on pain meds. he is seeing a pain management dr but he has never had a workup, he says, of his neck and head. he has never had xrays, nor cts, nor mris. he states he cant have mris because he has metal in his body. he said the neck pain causes his head to hurt. he states this is not a migraine MD Complaint: Neck pain, Other Onset/Timin -: Week(s) Radiation: Head Severity scale (1-10): 8 Consistency: Constant, Getting worse Improves With: Medication OTC/prescribed Worsens With: Movement of neck Associated Symptoms: Headache Treatments Prior to Arrival: Ibuprofen, Prescription pain med - Related Data Home Medications Medication Instructions Recorded Confirmed Last Taken Buprenorphine HCl [Belbuca] 1 applic PO Q12H 07/25/18 07/25/18 Unknown Oxycodone HCl [Oxy Ir] 5 mg PO Q8HR 07/25/18 07/25/18 Unknown Oxycodone Myristate [Xtampza ER] 18 mg PO Q12HR 07/25/18 07/25/18 Unknown Ranitidine HCl [Zantac] 150 mg PO DAILY 07/25/18 07/25/18 Unknown Allergies Allergy/AdvReac Type Severity Reaction Status Date / Time cefaclor [From [facility]] Allergy HYPERSENSIT Verified 02/07/18 18:24 IVITY doxycycline Allergy HYPERSENSIT Verified 02/07/18 18:24 IVITY levothyroxine Allergy HYPERSENSIT Verified 02/07/18 18:24 IVITY Travel Screening - Travel/Exposure Within Last 30 Days Have you traveled within the last 30 days?: No - Travel Symptoms Symptom Screening: None Review of Systems Reviewed: No additional complaints except as noted below Constitutional: Reports: As per HPI. Denies: Chills, Fever, Malaise, Night sweats, Weakness, Weight change Eyes: Reports: As per HPI. Denies: Eye discharge, Eye pain, Photophobia, Vision change ENT: Reports: As per HPI. Denies: Congestion, Dental pain, Ear pain, Epistaxis , Hearing loss, Throat pain Respiratory: Reports: As per HPI. Denies: Cough, Dyspnea, Hemoptysis, Stridor, Wheezes Cardiovascular: Reports: As per HPI. Denies: Arrhythmia, Chest pain, Dyspnea on exertion, Edema, Murmurs, Orthopnea, Palpitations, Paroxysmal nocturnal dyspnea, Rheumatic Fever, Syncope Endocrine: Reports: As per HPI. Denies: Fatigue, Heat or cold intolerance, Polydipsia, Polyuria Gastrointestinal: Reports: As per HPI. Denies: Abdominal pain, Constipation, Diarrhea, Hematemesis, Hematochezia, Melena, Nausea, Vomiting Genitourinary: Reports: As per HPI. Denies: Dysuria, Frequency, Hematuria, Incontinence, Retention, Testicular pain, Testicular mass, Urgency Musculoskeletal: Reports: As per HPI. Denies: Arthralgia, Back pain, Gout, Joint swelling, Myalgia, Neck pain Skin: Reports: As per HPI. Denies: Bruising, Change in color, Change in hair/ nails, Lesions, Pruritus, Rash Neurological: Reports: As per HPI, Headache. Denies: Abnormal gait, Confusion, Numbness, Paresthesias, Seizure, Tingling, Tremors, Vertigo, Weakness Psychiatric: Reports: As per HPI. Denies: Anxiety, Auditory hallucinations, Depression, Homicidal thoughts, Suicidal thoughts, Visual hallucinations Hematological/Lymphatic: Reports: As per HPI. Denies: Anemia, Blood Clots, Easy bleeding, Easy bruising, Swollen glands Past Medical History - SOCIAL HISTORY Smoking Status: Former smoker - RESPIRATORY Hx Respiratory Disorders: No - CARDIOVASCULAR Hx Cardio Disorders: No - NEURO Hx Neuro Disorders: Yes Hx Headaches: Yes - GI Hx GI Disorders: Yes Hx Reflux: Yes - Hx Genitourinary Disorders: No - ENDOCRINE Hx Endocrine Disorders: Yes Hx Thyroid Disease: Yes (hyper) - MUSCULOSKELETAL Hx Musculoskeletal Disorders: Yes Hx Arthritis: Yes Hx Back Injury: Yes (neck pain) - PSYCH Hx Psych Problems: Yes Hx Anxiety: Yes Hx Depression: Yes - HEMATOLOGY/ONCOLOGY Hx Hematology/Oncology Disorders: No Family Medical History Any Significant Family History?: Yes Family Hx Comment (NOT TO BE USED IN PLACE OF ITEMS BELOW): Denies Hx Dementia: Grandparents Hx Depression: Children Hx Diabetes: Mother, Grandparents Hx Heart Disease: Mother, Brother/Sister, Grandparents Physical Exam - General General Appearance: Alert, Oriented x3, Cooperative, Mild distress - Head Head exam: Normal inspection - Eye Eye exam: Normal appearance, PERRL, EOMI Pupils: Normal accommodation - ENT ENT exam: Normal exam, Mucous membranes moist, Normal external ear exam, Normal orophraynx, TM's normal bilaterally Ear exam: Normal external inspection. negative: External canal tenderness Nasal Exam: Normal inspection. negative: Discharge, Sinus tenderness Mouth exam: Normal external inspection, Tongue normal Teeth exam: Normal inspection. negative: Dental caries Throat exam: Normal inspection. negative: Tonsillar erythema, Tonsillar exudate - Neck Neck exam: Normal inspection, Tenderness. negative: Full ROM - Respiratory Respiratory exam: Normal lung sounds bilaterally. negative: Respiratory distress - Cardiovascular Cardiovascular Exam: Regular rate, Normal rhythm, Normal heart sounds - GI/Abdominal GI/Abdominal exam: Soft, Normal bowel sounds. negative: Tenderness - Rectal Rectal exam: Deferred - exam: Deferred - Extremities Extremities exam: Normal inspection, Full ROM, Normal capillary refill. negative: Tenderness - Back Back exam: Reports: Normal inspection, Full ROM. Denies: Muscle spasm, Rash noted, Tenderness - Neurological Neurological exam: Alert, Normal gait, Oriented X3, Reflexes normal - Psychiatric Psychiatric exam: Normal affect, Normal mood - Skin Skin exam: Dry, Intact, Normal color, Warm Course Vital Signs 07/24/18 22:03 Temperature 98.1 F Pulse Rate [ 78 Pulse Ox Probe] Respiratory 20 Rate Blood Pressure 131/93 [Left Arm] Pulse Ox 97 - Reevaluation(s) Reevaluation #1: 07/25/18 01:13 pt feels better Disposition Disposition: Discharge Clinical Impression: Cervical radiculopathy Headache Qualifiers: Headache type: unspecified Headache chronicity pattern: acute headache Intractability: intractable Qualified Code(s): R51 - Headache Disposition: Home, Self-Care Condition: (1) Good Instructions: Cervical Radiculopathy (ED) Additional Instructions: follow up with family doctor. return sooner if worse Quality - Quality Measures Quality Measures: N/A - Blood Pressure Screening Does Patient Have Any of the Following: No Blood Pressure Classification: Hypertensive Reading Systolic Measurement: 131 Diastolic Measurement: 93 Screening for High Blood Pressure: < Pre-Hypertensive BP, F/U Documented > [ G8950] Pre-Hypertensive Follow-up Interventions: Follow-up with rescreen every year.
--- NOTE | 2018-07-27 14:02 | CT SCAN REPORT ---
EXAM: CT OF THE BRAIN WITHOUT CONTRAST HISTORY: CHRONIC UPPER NECK PAIN. NO KNOWN INJURY. TECHNIQUE: Routine noncontrast CT of the brain was obtained. Comparison: No prior imaging of the brain available for comparison. Same day noncontrast CT of the cervical spine. FINDINGS: The ventricles and subarachnoid spaces are normal in size. No area of abnormally increased or decreased attenuation is noted throughout the brain substance. No abnormal extraaxial fluid collection is seen. No acute skull abnormality. The visualized paranasal sinuses and mastoid air cells are clear. The orbits as visualized are unremarkable. IMPRESSION: NEGATIVE NONCONTRAST CT OF THE BRAIN. JOB [facility]BER: [id number] [facility]
--- NOTE | 2018-07-27 14:13 | CT SCAN REPORT ---
EXAM: CT OF THE CERVICAL SPINE WITHOUT CONTRAST HISTORY: CHRONIC UPPER NECK PAIN. NO KNOWN INJURY. TECHNIQUE: Thin collimation helical CT examination of the cervical spine was performed in the axial plane without intravenous contrast. Coronal and sagittal reformatted images are generated and reviewed. Comparison: No prior imaging of the cervical spine available for comparison. Same day noncontrast CT of the brain. FINDINGS: There is normal bone mineralization. There is straightening of the normal cervical lordosis. No fracture, destructive bone lesion, or prevertebral soft tissue swelling is demonstrated. Mild disk space narrowing is demonstrated at the C4-C5, C5-C6 and C6-C7 levels. There is associated anterior marginal end plate spurring at the C5-C6 and C6-C7 level. This is most pronounced at the C6-C7 level. The intervertebral disks are otherwise maintained. No gross osseous cervical spinal stenosis. Minor multilevel disk bulging is present causing ventral sac flattening. That at the C3-C4 level combines with congenital canal narrowing to cause borderline central canal stenosis. No other central canal stenosis identified. Mild bilateral neural foraminal narrowing is noted at the C3-C4 level due to uncovertebral joint spurring. Mild left neural foraminal narrowing is present at the C4-C5 and C5-C6 levels also due to uncovertebral joint spurring. The neural foraminal are otherwise patent. Mild hypertrophic changes of the atlantodental joint. There is mucosal thickening within the maxillary sinuses with retention cyst formation in the floor of the right maxillary sinus. There is an impacted left maxillary wisdom tooth. No cervical mass nor adenopathy is seen. IMPRESSION: 1. NO ACUTE OSSEOUS OR LIGAMENTOUS ABNORMALITY. 2. MILD MULTILEVEL DEGENERATIVE CHANGES, DETAILED ABOVE. THOSE AT THE C3-C4 LEVEL CAUSE BORDERLINE CENTRAL CANAL STENOSIS. 3. MINOR NEURAL FORAMINAL NARROWING AT THE C3-C4 BILATERALLY AND AT THE C4-C5 WELL C5-C6 LEVELS ON THE LEFT. JOB NUMBER: [id number] [facility]
== END 2018-07-25 01:22 | disposition home or self-care (01) ==
LOC: ER 21:11
DX: M54.12 Radiculopathy, cervical region (principal); R51 Headache; Z87.891 Personal history of nicotine dependence
CPT/HCPCS: 99283; 96372; 99284; 72125; 70450; J1885

== ENCOUNTER 2018-10-25 23:06 | Emergency (ER) | payer MEDICARE, MEDICAID ==
[2018-10-25] MEDS ORDERED: METHYLPREDNISOLONE PF 125MG/VIAL IVP ONE (23:43)
[2018-10-25] MEDS ORDERED: DIAZEPAM (VALIUM) 5MG/ML **10ML VIAL IM ONE (23:43)
[2018-10-25] MEDS ORDERED: KETOROLAC 60 MG/2 ML VIAL IM STA (23:43)
[2018-10-25] MEDS ORDERED: METHYLPREDNISOLONE PF 125MG/VIAL IM ONE (23:45)
--- NOTE | 2018-10-25 23:51 | Emergency Department Record ---
History of Present Illness - General Chief complaint: Pain Stated complaint: BACK SURGERY PAIN Time Seen by Provider: 10/25/18 23:39 Source: Patient Mode of Arrival: Ambulatory Limitations: No limitations - History of Present Illness Initial comments: 43 yo male presents to ED for evaluation of worsening right sided "sciatic" pain radiating down his leg. Patient denies fevers, chills, or recent injury. Patient reports that he takes Oxycodone TID for his pain symptoms, missed his mid-day dose as he was driving. Patient reports taking his evening dose 90 minutes ago. Patient also reports history of a nerve stimulator placed in 2013 due to chronic back pain symptoms. Patient denies lower extremity weakness symptoms, numbness, or tingling distally. MD Complaint: Other (Low back pain) Onset/Timin -: Hour(s) Location: Other History of Same: Yes Severity scale (1-10): 10 Quality: Sharp, Stabbing, Other Consistency: Constant Improves with: Nothing Worsens with: Walking Associated Symptoms: Denies other symptoms - Related Data Allergies Allergy/AdvReac Type Severity Reaction Status Date / Time cefaclor [From Ceclor] Allergy HYPERSENSIT Verified 02/07/18 18:24 IVITY doxycycline Allergy HYPERSENSIT Verified 02/07/18 18:24 IVITY levothyroxine Allergy HYPERSENSIT Verified 02/07/18 18:24 IVITY Travel Screening - Travel/Exposure Within Last 30 Days Have you traveled within the last 30 days?: No - Travel/Exposure Within Last Year Have you traveled outside the [place] in the last year?: No - Additonal Travel Details Have you been exposed to anyone with a communicable illness?: No - Travel Symptoms Symptom Screening: None Review of Systems Constitutional: Denies: Chills, Fever, Malaise, Night sweats Eyes: Denies: Eye discharge, Eye pain ENT: Denies: Congestion, Ear pain, Epistaxis Respiratory: Denies: Cough, Dyspnea Cardiovascular: Denies: Chest pain, Dyspnea on exertion Endocrine: Denies: Fatigue, Heat or cold intolerance Gastrointestinal: Denies: Abdominal pain, Nausea, Vomiting Genitourinary: Denies: Incontinence, Retention Musculoskeletal: Reports: Back pain. Denies: Arthralgia, Gout, Joint swelling Skin: Denies: Bruising, Change in color Neurological: Denies: Confusion, Headache, Seizure, Weakness Psychiatric: Denies: Anxiety Hematological/Lymphatic: Denies: Anemia, Blood Clots Past Medical History - SOCIAL HISTORY Smoking Status: Former smoker Alcohol Use: Rare Drug Use: None - RESPIRATORY Hx Respiratory Disorders: No - CARDIOVASCULAR Hx Cardio Disorders: No - NEURO Hx Neuro Disorders: Yes Hx Headaches: Yes - GI Hx GI Disorders: Yes Hx Reflux: Yes - Hx Genitourinary Disorders: No - ENDOCRINE Hx Endocrine Disorders: Yes Hx Thyroid Disease: Yes (hyper) - MUSCULOSKELETAL Hx Musculoskeletal Disorders: Yes Hx Arthritis: Yes Hx Back Injury: Yes (neck pain) - PSYCH Hx Psych Problems: No Hx Anxiety: No (denies) Hx Depression: No (denies) - HEMATOLOGY/ONCOLOGY Hx Hematology/Oncology Disorders: No Family Medical History Any Significant Family History?: No Family Hx Comment (NOT TO BE USED IN PLACE OF ITEMS BELOW): Denies Hx Dementia: Grandparents Hx Depression: Children Hx Diabetes: Mother, Grandparents Hx Heart Disease: Mother, Brother/Sister, Grandparents Physical Exam - General General Appearance: Alert, Oriented x3, Cooperative, Moderate distress (Due to his pain symptoms) Limitations: No limitations - Head Head exam: Atraumatic, Normocephalic, Normal inspection Head exam detail: negative: Abrasion, Contusion, Sanders's sign, General tenderness, Hematoma, Laceration - Eye Eye exam: Normal appearance. negative: Conjunctival injection, Periorbital swelling, Periorbital tenderness, Scleral icterus - ENT Ear exam: negative: Auricular hematoma, Auricular trauma Nasal Exam: negative: Active bleeding, Discharge, Dried blood, Foreign body Mouth exam: negative: Drooling, Laceration, Muffled voice, Tongue elevation - Neck Neck exam: Normal inspection. negative: Meningismus, Tenderness - Respiratory Respiratory exam: Normal lung sounds bilaterally. negative: Rales, Respiratory distress, Rhonchi, Stridor - Cardiovascular Cardiovascular Exam: Regular rate, Normal rhythm, Normal heart sounds - GI/Abdominal GI/Abdominal exam: Soft. negative: Rebound, Rigid, Tenderness - Rectal Rectal exam: Deferred - exam: Deferred - Extremities Extremities exam: negative: Pedal edema, Tenderness - Back Back exam: Reports: Tenderness (TTP over the SI joints bialterally, R>L, no rash present, previous surgical scar appears well healed on examination.). Denies: CVA tenderness (R), CVA tenderness (L) - Neurological Neurological exam: Alert, Oriented X3 - Psychiatric Psychiatric exam: Normal affect, Normal mood - Skin Skin exam: Normal color. negative: Abrasion Type of lesion: negative: abrasion Course Vital Signs 10/25/18 23:26 Temperature 98.2 F Pulse Rate [ 75 Pulse Ox Probe] Respiratory 24 Rate Blood Pressure 148/92 [Left Arm] Pulse Ox 99 - Reevaluation(s) Reevaluation #1: 10/26/18 00:21 Patient was reassessed, reports that his pain symptoms are improved. Patient visibly appears more comfortable, appears stable for discharge at this time. Disposition Disposition: Discharge Clinical Impression: Acute exacerbation of chronic low back pain Disposition: Home, Self-Care Condition: (2) Stable Instructions: Low Back Strain (ED) Additional Instructions: Return to ED if your symptoms worsen or if you have any concerns. Continue Oxycodone as previously prescribed. Follow-up with your family doctor in 3-5 days as directed. Forms: Patient Portal Access Time of Disposition: 00:22 Quality - Quality Measures Quality Measures: N/A - Blood Pressure Screening Does Patient Have Any of the Following: No Blood Pressure Classification: Hypertensive Reading Systolic Measurement: 148 Diastolic Measurement: 92 Screening for High Blood Pressure: < First Hypertensive BP, F/U Documented > [G8950] First Hypertensive Follow-up Interventions: Referral to alternative/primary care provider.
== END 2018-10-26 00:30 | disposition home or self-care (01) ==
LOC: ER 23:06
DX: M54.5 Low back pain (principal); E05.90 Thyrotoxicosis, unspecified without thyrotoxic crisis or storm; Z87.891 Personal history of nicotine dependence
CPT/HCPCS: 99284 ×2; 96374; 96372; 96375; J3360; J1885; J2930

== ENCOUNTER 2019-02-14 20:31 | Emergency (ER) | payer MEDICARE, MEDICAID ==
[2019-02-14] MEDS ORDERED: ASPIRIN 81 MG CHEWABLE TABLET PO ONE (20:42)
--- NOTE | 2019-02-14 20:43 | Emergency Department Record ---
History of Present Illness - General Chief Complaint: Chest Pain Stated Complaint: CHEST PAIN Time Seen by Provider: 02/14/19 20:41 Source: Patient Mode of Arrival: Ambulatory Limitations: No limitations - History of Present Illness Initial Comments: 44 yo male presents with chest pain onset just prior to arrival. He does report some emotional stress tonight due to issues with a child at home. His child took the family vehicle without permission causing him to get upset. The pain started after than. The pain is over the left chest with some radiation to the shoulder. He denies a history of CAD. He has had some pain on and off the last week. His father had known CAD with LAD blockage. No nausea or vomiting. No other recent changes in his health. MD Complaint: Chest pain Onset/Timin -: Hour(s) Onset: Other Pain Location: Substernal Pain Radiation: LUE Severity: Moderate Quality: Sharp Improves With: Nothing Worsens With: Nothing Treatments Prior to Arrival: None - Related Data Allergies Allergy/AdvReac Type Severity Reaction Status Date / Time cefaclor [From Ceclor] Allergy HYPERSENSIT Verified 12/01/18 09:18 IVITY doxycycline Allergy HYPERSENSIT Verified 12/01/18 09:18 IVITY levothyroxine Allergy HYPERSENSIT Verified 12/01/18 09:18 IVITY Travel Screening - Travel/Exposure Within Last 30 Days Have you traveled within the last 30 days?: No - Travel/Exposure Within Last Year Have you traveled outside the [place] in the last year?: No - Additonal Travel Details Have you been exposed to anyone with a communicable illness?: No Review of Systems Constitutional: Denies: Chills, Fever, Malaise, Weakness Eyes: Denies: Eye discharge, Eye pain, Photophobia, Vision change ENT: Denies: Congestion, Throat pain Respiratory: Denies: Cough, Dyspnea, Hemoptysis, Stridor, Wheezes Cardiovascular: Reports: Chest pain. Denies: Edema, Palpitations, Syncope Endocrine: Denies: Fatigue, Polydipsia, Polyuria Gastrointestinal: Denies: Abdominal pain, Diarrhea, Nausea, Vomiting Genitourinary: Denies: Dysuria, Frequency, Hematuria Musculoskeletal: Denies: Arthralgia, Back pain, Joint swelling, Myalgia Skin: Denies: Bruising, Change in color, Rash Neurological: Denies: Headache, Numbness, Weakness Psychiatric: Denies: Anxiety Hematological/Lymphatic: Denies: Easy bleeding, Easy bruising Past Medical History - SOCIAL HISTORY Smoking Status: Former smoker Alcohol Use: Rare Drug Use: None - RESPIRATORY Hx Respiratory Disorders: No - CARDIOVASCULAR Hx Cardio Disorders: No - NEURO Hx Neuro Disorders: Yes Hx Headaches: Yes - GI Hx GI Disorders: Yes Hx Reflux: Yes - Hx Genitourinary Disorders: No - ENDOCRINE Hx Endocrine Disorders: Yes Hx Thyroid Disease: Yes (hyper) - MUSCULOSKELETAL Hx Musculoskeletal Disorders: Yes Hx Arthritis: Yes Hx Back Injury: Yes (neck pain) - PSYCH Hx Psych Problems: No Hx Anxiety: No (denies) Hx Depression: No (denies) - HEMATOLOGY/ONCOLOGY Hx Hematology/Oncology Disorders: No Family Medical History Any Significant Family History?: Yes Family Hx Comment (NOT TO BE USED IN PLACE OF ITEMS BELOW): Denies Hx Dementia: Grandparents Hx Depression: Children Hx Diabetes: Mother, Grandparents Hx Heart Disease: Mother, Brother/Sister, Grandparents Hx HTN: Father, Grandparents Physical Exam - General General Appearance: Alert, Oriented x3, Cooperative, No acute distress Limitations: No limitations - Head Head exam: Atraumatic, Normal inspection - Eye Eye exam: Normal appearance, PERRL. negative: Conjunctival injection, Scleral icterus - ENT ENT exam: Normal exam, Mucous membranes moist Ear exam: Normal external inspection Nasal Exam: Normal inspection Mouth exam: Normal external inspection - Neck Neck exam: Normal inspection - Respiratory Respiratory exam: Normal lung sounds bilaterally, Chest wall tenderness (tender mid and left upper chest). negative: Accessory muscle use, Decreased breath sounds, Prolonged expiratory, Respiratory distress, Rhonchi, Stridor, Wheezes - Cardiovascular Cardiovascular Exam: Regular rate, Normal rhythm, Normal heart sounds Peripheral Pulses: 2+: Radial (R), Radial (L) - GI/Abdominal GI/Abdominal exam: Soft. negative: Distended, Guarding, Tenderness - Rectal Rectal exam: Deferred - exam: Deferred - Extremities Extremities exam: Normal inspection, Full ROM. 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 02/14/19 21:31 02/15/19 00:36 The repeat troponin is negative The onset and symptoms are atypical HEART score is low risk. DC for outpatient follow up We discussed close follow up and reasons to return to the ED The patient was offered observation but refused I did refer him to the cardiology clinic with Dr Barrios Medical Decision Making - Lab Data Result diagrams: 02/14/19 20:50 02/14/19 20:50 Disposition Disposition: Discharge Clinical Impression: Chest pain Qualifiers: Chest pain type: unspecified Qualified Code(s): R07.9 - Chest pain, unspecified Disposition: Home, Self-Care Condition: (1) Good Instructions: Chest Pain (ED) Additional Instructions: Review this ER visit and the tests performed with your family doctor Call your doctor for the next available follow up appointment Return to the ER for a recheck if worse, any new concerns or questions Take the prescriptions provided as directed You have been referred to the cardiology clinic with Dr Barrios Call tomorrow for an open appointment time Referrals: Remy Barrios M.D. [MEDICAL DOCTOR] - [facility] [Provider Group] Forms: Patient Portal Access Time of Disposition: 00:38 Quality - Quality Measures Quality Measures: N/A - Blood Pressure Screening Does Patient Have Any of the Following: Active Dx of HTN Blood Pressure Classification: Pre-Hypertensive BP Reading Systolic Measurement: 135 Diastolic Measurement: 89 Screening for High Blood Pressure: Patient Exclusion, Hx of HTN [G9744]
[2019-02-14 21:02] LABS: ABSOLUTE NEUTROPHIL COUNT 6.67; BASO % 0.3 % (0-6); GRAN % 67.1 % (47-80); HEMATOCRIT 44.9 % (42.0-52.0); LYMPH % 22.6 % (16-45); MEAN CELL VOLUME 82.4 fl (81-97); MEAN CORPUSCULAR HEMOGLOBIN 27.5 pg (27-33); MEAN CORPUSCULAR HGB CONC 33.4 g/dl (32-36); PLATELET COUNT 313 K/uL (130-400); RED BLOOD COUNT 5.45 M/uL (4.40-5.70); RED CELL DISTRIBUTION WIDTH 13.1 % (11.5-14.5)
[2019-02-14 21:10] LABS: BLOOD UREA NITROGEN 11 mg/dL (6-20); CREATININE 0.9 mg/dL (0.7-1.2); EST GLOMERULAR FILTRATION RATE > 60 mL/min
[2019-02-14 21:13] LABS: GLUCOSE,RANDOM 109 mg/dL (74-109)
[2019-02-14 21:14] LABS: PARTIAL THROMBOPLASTIN TIME 26.1 SECONDS (24.5-39.1)
== END 2019-02-15 00:51 | disposition home or self-care (01) ==
LOC: ER 20:31
DX: R07.2 Precordial pain (principal); R61 Generalized hyperhidrosis; I10 Essential (primary) hypertension; Z87.891 Personal history of nicotine dependence
CPT/HCPCS: 71045; 80048; 84484; 85025; 85610; 85730; 93005; 93010; 99284

== ENCOUNTER 2019-06-25 01:10 | Emergency (ER) | payer MEDICARE, MEDICAID ==
--- NOTE | 2019-06-25 01:34 | Emergency Department Record ---
History of Present Illness - General Chief complaint: Lower Extremity Pain Stated complaint: RIGHT FOOT PAIN Time Seen by Provider: 06/25/19 01:25 Source: Patient Mode of Arrival: Ambulatory Limitations: No limitations - History of Present Illness Initial comments: pt inverted r ankle getting out of truck. he heard a pop Complaint: Extremity pain, Extremity swelling Onset/Timin -: Hour(s) Location: Right, Foot Severity scale (1-10): 7 Quality: Aching, Other Consistency: Constant Improves with: Immobilization Worsens with: Walking, Weight bearing Associated Symptoms: Denies other symptoms - Related Data Allergies Allergy/AdvReac Type Severity Reaction Status Date / Time cefaclor [From Ceclor] Allergy HYPERSENSIT Verified 06/25/19 01:15 IVITY doxycycline Allergy HYPERSENSIT Verified 06/25/19 01:15 IVITY levothyroxine Allergy HYPERSENSIT Verified 06/25/19 01:15 IVITY Travel Screening - Travel/Exposure Within Last 30 Days Have you traveled within the last 30 days?: No - Travel/Exposure Within Last Year Have you traveled outside the [place] in the last year?: No - Additonal Travel Details Have you been exposed to anyone with a communicable illness?: No - Travel Symptoms Symptom Screening: None Review of Systems Reviewed: No additional complaints except as noted below Constitutional: Reports: As per HPI. Denies: Chills, Fever, Malaise, Night sweats, Weakness, Weight change Eyes: Reports: As per HPI. Denies: Eye discharge, Eye pain, Photophobia, Vision change ENT: Reports: As per HPI. Denies: Congestion, Dental pain, Ear pain, Epistaxis, Hearing loss, Throat pain Respiratory: Reports: As per HPI. Denies: Cough, Dyspnea, Hemoptysis, Stridor, Wheezes Cardiovascular: Reports: As per HPI. Denies: Arrhythmia, Chest pain, Dyspnea on exertion, Edema, Murmurs, Orthopnea, Palpitations, Paroxysmal nocturnal dyspnea, Rheumatic Fever, Syncope Endocrine: Reports: As per HPI. Denies: Fatigue, Heat or cold intolerance, Polydipsia, Polyuria Gastrointestinal: Reports: As per HPI. Denies: Abdominal pain, Constipation, Diarrhea, Hematemesis, Hematochezia, Melena, Nausea, Vomiting Genitourinary: Reports: As per HPI. Denies: Dysuria, Frequency, Hematuria, Incontinence, Retention, Testicular pain, Testicular mass, Urgency Musculoskeletal: Reports: As per HPI. Denies: Arthralgia, Back pain, Gout, Joint swelling, Myalgia, Neck pain Skin: Reports: As per HPI. Denies: Bruising, Change in color, Change in hair/nails, Lesions, Pruritus, Rash Neurological: Reports: As per HPI. Denies: Abnormal gait, Confusion, Headache, Numbness, Paresthesias, Seizure, Tingling, Tremors, Vertigo, Weakness Psychiatric: Reports: As per HPI. Denies: Anxiety, Auditory hallucinations, Depression, Homicidal thoughts, Suicidal thoughts, Visual hallucinations Hematological/Lymphatic: Reports: As per HPI. Denies: Anemia, Blood Clots, Easy bleeding, Easy bruising, Swollen glands Past Medical History - SOCIAL HISTORY Smoking Status: Former smoker Alcohol Use: Rare Drug Use: None - RESPIRATORY Hx Respiratory Disorders: No - CARDIOVASCULAR Hx Cardio Disorders: Yes Hx Hypertension: Yes - NEURO Hx Neuro Disorders: Yes Hx Headaches: Yes - GI Hx GI Disorders: Yes Hx Reflux: Yes - Hx Genitourinary Disorders: No - ENDOCRINE Hx Endocrine Disorders: Yes Hx Thyroid Disease: Yes (hyper) - MUSCULOSKELETAL Hx Musculoskeletal Disorders: Yes Hx Arthritis: Yes Hx Back Injury: Yes (neck pain) - PSYCH Hx Psych Problems: No Hx Anxiety: No (denies) Hx Depression: No (denies) - HEMATOLOGY/ONCOLOGY Hx Hematology/Oncology Disorders: No Family Medical History Any Significant Family History?: Yes Family Hx Comment (NOT TO BE USED IN PLACE OF ITEMS BELOW): Denies Hx Dementia: Grandparents Hx Depression: Children Hx Diabetes: Mother, Grandparents Hx Heart Disease: Mother, Brother/Sister, Grandparents Hx HTN: Father, Grandparents Physical Exam - General General Appearance: Alert, Oriented x3, Cooperative, No acute distress - Head Head exam: Normal inspection - Eye Eye exam: Normal appearance, PERRL, EOMI Pupils: Normal accommodation - ENT ENT exam: Normal exam, Mucous membranes moist, Normal external ear exam, Normal orophraynx Ear exam: Normal external inspection. negative: External canal tenderness Nasal Exam: Normal inspection. negative: Discharge, Sinus tenderness Mouth exam: Normal external inspection, Tongue normal Teeth exam: Normal inspection. negative: Dental caries Throat exam: Normal inspection. negative: Tonsillar erythema, Tonsillar exudate - Neck Neck exam: Normal inspection, Full ROM. negative: Tenderness - Respiratory Respiratory exam: Normal lung sounds bilaterally. negative: Respiratory distress - Cardiovascular Cardiovascular Exam: Regular rate, Normal rhythm, Normal heart sounds - GI/Abdominal GI/Abdominal exam: Soft, Normal bowel sounds. negative: Tenderness - Rectal Rectal exam: Deferred - exam: Deferred - Extremities Extremities exam: Normal capillary refill, Tenderness. negative: Full ROM Image of Feet: 1 - tender - Back Back exam: Reports: Normal inspection, Full ROM. Denies: Muscle spasm, Rash noted, Tenderness - Neurological Neurological exam: Alert, CN II-XII intact, Normal gait, Oriented X3 - Psychiatric Psychiatric exam: Normal affect, Normal mood - Skin Skin exam: Dry, Intact, Normal color, Warm Course Vital Signs 06/25/19 01:17 Temperature 97.5 F L Pulse Rate [ 82 Left] Respiratory 16 Rate Blood Pressure 142/72 [Left Arm] Pulse Ox 97 Disposition Disposition: Discharge Clinical Impression: Ankle sprain Qualifiers: Encounter type: initial encounter Involved ligament of ankle: unspecified ligament Laterality: right Qualified Code(s): S93.401A - Sprain of unspecified ligament of right ankle, initial encounter Disposition: Home, Self-Care Condition: (1) Good Instructions: Ankle Sprain (ED) Additional Instructions: follow up with family doctor. return sooner if worse. ice and elevate. tylenol for pain Quality - Quality Measures Quality Measures: N/A - Blood Pressure Screening Does Patient Have Any of the Following: No Blood Pressure Classification: Hypertensive Reading Systolic Measurement: 142 Diastolic Measurement: 72 Screening for High Blood Pressure: < First Hypertensive BP, F/U Documented > [G8950] First Hypertensive Follow-up Interventions: Follow-up with rescreen GT 1 day and LT 4 weeks.
--- NOTE | 2019-06-25 02:05 | RADIOLOGY REPORT ---
EXAMINATION: Right Ankle, Complete Minimum Three Views EXAM DATE: 06/25/2019 1:56 AM TECHNIQUE: AP, lateral, and oblique INDICATION: injury COMPARISON: None ENCOUNTER: Initial FINDINGS: There is no bone or joint abnormality. IMPRESSION: No evidence fracture dislocation. Mild degenerative change Dictated by: Kayley Logan DO on 06/25/2019 2:04 AM. .
== END 2019-06-25 02:24 | disposition home or self-care (01) ==
LOC: ER 01:10
DX: S93.401A Sprain of unspecified ligament of right ankle, initial encounter (principal); X50.0XXA Overexertion from strenuous movement or load, initial encounter; Z87.891 Personal history of nicotine dependence; I10 Essential (primary) hypertension
CPT/HCPCS: 99283